=== PATIENT | female | born 1995 | race Caucasian/White ===

== ENCOUNTER → 2016-08-03 | Outpatient (CLI) | payer MEDICAID | END | disposition home or self-care (01) | LOC: LABWHC1 15:00 | DX: L65.9 Nonscarring hair loss, unspecified (principal) | CPT/HCPCS: 36415; 84132 ==

== ENCOUNTER 2020-02-15 10:54 | Inpatient (IN) | payer MEDICAID ==
[2020-02-15 11:25] LABS: Appearance,Urine Cloudy (Clear); Bacteria,Urine Few /hpf; Bilirubin,Urine Negative (Negative); Blood,Urine Negative (Negative); Color,Urine Yellow; Glucose,Urine (UA) Negative (Negative); Ketones,Urine Negative (Negative); Leukocyte Esterase,Urine Large (Negative); Mucus,Urine Rare /hpf; Nitrite,Urine Negative (Negative); PH, Urine 6.5 (5.0-8.0); Protein,Urine Negative (Negative); RBC,Urine 2 /hpf (0-5); Squamous Epithelial Cell,Urine 2 /hpf (0-4); Urobilinogen,Urine <2.0 mg/dL (<2.0); WBC,Urine 10 /hpf (0-5)
--- NOTE | 2020-02-15 12:34 | US ---
EXAMINATION TYPE: US kidneys/renal and bladder DATE OF EXAM: 02/15/2020 COMPARISON: CT, X ray CLINICAL HISTORY: left back pain. Left flank pain in third trimester ; prior renal stones; h ematuria per patient EXAM MEASUREMENTS: Right Kidney: 9.0 x 4.6 x 4.1 cm Left Kidney: 9.1 x 5.2 x 5.6 cm Post Void Residual Volume: not assessed on inpatient Right Kidney: multiple hyperechoic small calcifications with largest noted mid lower pole = 0.5 x 0.5 x 0.5cm; moderate hydronephrosis Left Kidney: multiple hyperechoic calcifications with largest noted mid pole cluster = 0.7 x 0.3 x 0. 3cm; mild hydronephrosis Bladder: wnl Bilateral Jets seen: only left ureter jet see IMPRESSION: 1. Moderate right hydronephrosis. Mild left hydronephrosis. 2. Multiple right renal stones.
[2020-02-15] MEDS: LACTATED RINGERS 1,000 ML IV SCH ×3 (12:45→19:54)
[2020-02-15] MEDS ORDERED: ACETAMINOPHEN IV (For NPO) 1,000 MG in EMPTY BAG 1 BAG IVPB ONE (12:59)
[2020-02-15] MEDS ORDERED: HYDROcodone/APAP 5-325MG 1 EACH TAB PO STA (14:23)
[2020-02-15] MEDS ORDERED: LACTATED RINGERS 1,000 ML IV SCH (14:30)
[2020-02-15] MEDS: ONDANSETRON 4 MG/2 ML VIAL IVP PRN ×2 (15:32→23:49)
[2020-02-15] MEDS ORDERED: NALOXONE 0.4 MG/ML 1 ML VIAL IV PRN (16:56)
[2020-02-15] MEDS: HYDROmorphone PCA 10 MG/50 ML BAG IV PRN (18:06)
--- NOTE | 2020-02-15 19:34 | P.GSCN ---
History of Present Illness Consult date: 02/15/20 Reason for Consult: Bilateral hydronephrosis History of present illness: .The patient is a 24-year-old, 35 week female admitted for evaluation left flank pain. The patient says that she noted some blood in her urine on 02/11 and was started on Macrobid due to a possible urinary tract infection. She denied any dysuria or change in her urinary pattern at that time. She has had no fever or chills. Two days ago she began experiencing increasing pain in the left flank and left upper abdomen. This has been associated with nausea but no vomiting. The patient came to the OB triage area for evaluation and control of her pain. Ultrasound of the kidneys and bladder performed earlier today showed what appeared to be multiple renal calculi bilaterally. Moderate right hydronephrosis and mild left hydronephrosis was seen. A left ureteral jet was demonstrated. The patient has a history of urolithiasis which required treatment in 2013. She does not have a history of recurrent urinary tract infections. She denies any dysuria or urgency at this time. Review of Systems - Constitutional Denies chills, Denies fever - Cardiovascular Denies shortness of breath - Gastrointestinal Reports as per HPI, Denies change in bowel habits - Genitourinary Genitourinary: Reports as per HPI Past Medical History Additional Past Medical History / Comment(s): RENAL CALCULUS, mononucleosis 2011 History of Any Multi-Drug Resistant Organisms: None Reported Past Surgical History: No Surgical Hx Reported Past Anesthesia/Blood Transfusion Reactions: No Reported Reaction Smoking Status: Never smoker Medications and Allergies Home Medications Medication Instructions Recorded Confirmed Type Acetaminophen-Codeine 300-30mg 1 each PO Q4H PRN #12 tablet 02/10/14 02/18/14 Rx [Tylenol #3] Ketorolac [Toradol] 10 mg PO Q6HR PRN #15 tab 02/10/14 02/14/14 Rx Metoclopramide HCl [Reglan] 10 mg PO Q6HR PRN #15 tablet 02/10/14 02/14/14 Rx Tamsulosin HCl [Flomax] 0.4 mg PO DAILY 02/18/14 02/18/14 History Allergies Allergy/AdvReac Type Severity Reaction Status Date / Time No Known Allergies Allergy Verified 02/15/20 11:09 Surgical - Exam Vital Signs Temp Pulse Resp BP 96.7 F L 115 H 16 134/86 02/15/20 11:20 02/15/20 11:20 02/15/20 11:20 02/15/20 11:20 - General well developed, well nourished, moderate pain - Respiratory normal respiratory effort - Abdomen Abdomen: soft, masses (Consistent with a gravid uterus) Results - Labs Abnormal Lab Results - Last 24 Hours (Table) 02/15/20 Range/Units 11:10 Urine Appearance Cloudy H (Clear) Ur Leukocyte Esterase Large H (Negative) Urine WBC 10 H (0-5) /hpf Urine Bacteria Few H (None) /hpf Urine Mucus Rare H (None) /hpf Assessment and Plan (1) Bilateral hydronephrosis Narrative/Plan: I told the patient that it is unclear whether her left-sided abdominal pain and hydronephrosis are related to passage of a ureteral calculus or whether the hydronephrosis is related to her late stage of . She actually had more hydronephrosis on the right side than on the left side and a left ureteral jet was present. The patient does not have a urinary tract infection or other signs of sepsis. In view of this further observation with analgesics and antinausea medications would be the best first step. I will reevaluate the patient tomorrow. Current Visit: Yes Status: Acute Code(s): N13.30 - UNSPECIFIED HYDRONEPHROSIS SNOMED Code(s): 49653272
[2020-02-16] MEDS ORDERED: ACETAMINOPHEN IV (For NPO) 1,000 MG in EMPTY BAG 1 BAG IVPB ONE (00:33)
[2020-02-16] MEDS: LACTATED RINGERS 1,000 ML IV SCH ×5 (00:53→20:29)
[2020-02-16] MEDS: ONDANSETRON 4 MG/2 ML VIAL IVP PRN ×2 (09:16→14:43)
--- NOTE | 2020-02-16 11:14 | P.PN ---
Progress Note - Text Progress Note Date: 02/16/20 The patient is afebrile. She says that she feels somewhat better than yesterday. She is tolerating a diet. She continues to have left-sided abdominal and flank pain. Her pain seems worse with moving and ambulation which is not typical for renal colic. The patient can be discharged from [facility] once her pain is controllable with oral analgesics.
--- NOTE | 2020-02-16 12:37 | P.HPOB ---
History of Present Illness H&P Date: 02/16/20 Chief Complaint: 34-6/7 weeks, nephrolithiasis, acute pain The patient is a 24-year-old 1 para 0 admitted at 34-6/7 weeks as established by last menstrual period and confirmed by second trimester ultrasound. She is admitted with a known history of nephrolithiasis for which urology has seen her on several occasions. She presents to triage with acute onset of pain, primarily in the left flank. Ultrasound demonstrates bilateral stones in the hilus of each kidney. There is moderate right hydronephrosis with mild left hydronephrosis. The patient reports her pain is primarily on the left side. She was aggressively hydrated in triage and treated with oral pain medications but failed to have adequate relief of her pain. As result, she was admitted for IV pain control. All signs are reassuring at this time. She also has reported some irregular nausea though she is currently tolerating liquids and a regular diet. Thus far, her pain has not been adequately controlled with only oral pain medications. As a result, she has been admitted and given a CHIP MIXER for analgesia as well as aggressive IV and oral hydration. Obstetrical history: 1 para 0 with current statistics listed in history present illness. EDC of 03/22/2020 was established by last menstrual period and confirmed by second trimester ultrasound. Laboratory workup demonstrates a blood type of O+ with a negative antibody screen. Rubella status is immune. The remainder of the laboratory workup was within normal limits. One hour Glucola is normal and group B strep status is not yet been determined. Gynecologic history: Unremarkable with no history of any infections to include STDs. Review of Systems Review of systems is confined to history of present illness. Past Medical History Additional Past Medical History / Comment(s): RENAL CALCULUS, mononucleosis 2011 History of Any Multi-Drug Resistant Organisms: None Reported Past Surgical History: No Surgical Hx Reported Past Anesthesia/Blood Transfusion Reactions: No Reported Reaction Past Psychological History: No Psychological Hx Reported Smoking Status: Never smoker Past Alcohol Use History: None Reported Past Drug Use History: None Reported - Past Family History Mother Family Medical History: No Reported History Medications and Allergies Home Medications Medication Instructions Recorded Confirmed Type Acetaminophen-Codeine 300-30mg 1 each PO Q4H PRN #12 tablet 02/10/14 02/18/14 Rx [Tylenol #3] Ketorolac [Toradol] 10 mg PO Q6HR PRN #15 tab 02/10/14 02/14/14 Rx Metoclopramide HCl [Reglan] 10 mg PO Q6HR PRN #15 tablet 02/10/14 02/14/14 Rx Tamsulosin HCl [Flomax] 0.4 mg PO DAILY 02/18/14 02/18/14 History Allergies Allergy/AdvReac Type Severity Reaction Status Date / Time No Known Allergies Allergy Verified 02/15/20 11:09 Exam Vital Signs Temp Pulse Resp BP Pulse Ox 02/16/20 08:00 98.2 F 76 18 124/76 96 Intake and Output 02/15/20 02/16/20 02/16/20 22:59 06:59 14:59 Intake Total 1000 Balance 1000 Intake: IV 1000 Other: # Voids 1 1 Weight 78.925 kg In general, this is a well-developed, well-nourished white female in no acute distress though she does have some moderate flank pain. Her heart has a regular rhythm and rate without murmur. Her lungs are clear to auscultation bilaterally in all sterling. Her abdomen is gravid, nondistended, has normal active bowel sounds, soft, nontender, and without any palpable masses aside from uterine fundus. Her extremities are without any cyanosis, clubbing, or edema and are nontender to palpation bilaterally. She does have mild to moderate left flank pain with minimal to mild right flank pain. Results Microbiology - Last 24 Hours (Table) 02/15/20 11:00 Urine Culture - Preliminary Urine,Clean Catch Assessment and Plan (1) Nephrolithiasis Current Visit: Yes Status: Acute Code(s): N20.0 - CALCULUS OF KIDNEY SNOMED Code(s): 00352591 (2) 35 weeks gestation of Current Visit: Yes Status: Acute Code(s): Z3A.35 - 35 WEEKS GESTATION OF SNOMED Code(s): 43278040 (3) Acute left flank pain Current Visit: Yes Status: Acute Code(s): R10.9 - UNSPECIFIED ABDOMINAL PAIN SNOMED Code(s): 932537716 Plan: The patient has been admitted for IV management of pain given her diagnosis of nephrolithiasis and inability to control it with oral pain medications. She continues to have relatively aggressive IV hydration and is tolerating oral fluids as well. Her urine will be strained. There is no evidence of any superimposed infection at this time. Urology has been consulted and the notes from urology service are appreciated. We will continue to make attempts to transition from IV pain controlled oral pain control in order to attempt to dis charge the patient as soon as possible. This may become more difficult as she continues to have significant nausea.
[2020-02-16] MEDS ORDERED: ACETAMINOPHEN IV (For NPO) 1,000 MG in EMPTY BAG 1 BAG IVPB STA (16:03)
[2020-02-16] MEDS: SENNOSIDES-DOCUSATE SODIUM 1 EACH TAB PO SCH (20:37)
[2020-02-17] MEDS: HYDROmorphone PCA 10 MG/50 ML BAG IV PRN (00:41)
[2020-02-17] MEDS: LACTATED RINGERS 1,000 ML IV SCH ×3 (04:30→20:34)
[2020-02-17] MEDS: ONDANSETRON 4 MG/2 ML VIAL IVP PRN ×2 (08:03→17:52)
[2020-02-17] MEDS: SENNOSIDES-DOCUSATE SODIUM 1 EACH TAB PO SCH (08:03)
--- NOTE | 2020-02-17 10:48 | P.PN ---
Subjective Progress Note Date: 02/17/20 Principal diagnosis: Left nephrolithiasis, 35+ weeks gestation The patient continues to complain of relatively constant pain in the left flank which has not decreased to this point. She does continue to require IV narcotics with a TRAPPER ANIMAL. She has occasional nausea but is otherwise tolerating oral liquids and solids. Objective - Vital Signs Vital signs: Vital Signs Temp 97.0 F L 02/17/20 08:04 Pulse 110 H 02/17/20 08:04 Resp 16 02/17/20 08:04 BP 122/76 02/17/20 08:04 Pulse Ox 95 02/17/20 08:04 Intake & Output 02/16/20 02/17/20 02/17/20 18:59 06:59 18:59 Intake Total 1000 1000 Balance 1000 1000 Intake: IV 1000 1000 Other: # Voids 2 - Exam In general, this is a well-developed, well-nourished white female in no obvious distress. Her heart has a regular rhythm and rate without murmur. Her lungs are clear to auscultation bilaterally in all sterling. Her abdomen is gravid, nondistended, has normal active bowel sounds, soft, nontender, and without masses aside from uterine fundus. Her left flank is still moderately tender to palpation. Her extremities are without any cyanosis, clubbing, or significant edema and are nontender to palpation bilaterally. Digital cervical examination is deferred. - Labs Labs: Microbiology - Last 24 Hours (Table) 02/15/20 11:00 Urine Culture - Final Urine,Clean Catch Assessment and Plan (1) Nephrolithiasis Current Visit: Yes Status: Acute Code(s): N20.0 - CALCULUS OF KIDNEY SNOMED Code(s): 38086701 (2) 35 weeks gestation of Current Visit: Yes Status: Acute Code(s): Z3A.35 - 35 WEEKS GESTATION OF SNOMED Code(s): 73579473 (3) Acute left flank pain Current Visit: Yes Status: Acute Code(s): R10.9 - UNSPECIFIED ABDOMINAL PAIN SNOMED Code(s): 009768459 Plan: The case was discussed with Dr. Jackson from urology. We will continue aggressive IV hydration and IV pain control. He has opted to order a single shot KUB to attempt to locate the site of the stone to make further recommendations. Further disposition will the 10 upon the findings of the x-ray.
--- NOTE | 2020-02-17 12:12 | XR ---
EXAMINATION TYPE: XR KUB , ONE VIEW DATE OF EXAM ORDERED: 02/17/2020 HISTORY: left ureteral calculi. COMPARISON: Previous study dated 02/22/2014.. FINDINGS: There is a fully developed fetus within the abdomen. There are multiple phleboliths within the pelvis. There is a calculus projecting just below the pedicle of L5 measuring 3.9 mm. This may r epresent a ureteric calculus. IMPRESSION: 1. . 2. I CANNOT EXCLUDE A RENAL CALCULUS.
--- NOTE | 2020-02-17 13:14 | P.PN ---
Progress Note - Text Progress Note Date: 02/17/20 The patient is afebrile. She continues to have intermittent left flank pain which so far has been tolerable only with IV narcotics. She no longer has vomiting and is tolerating liquids but is not very hungry. I discussed the patient with Dr. Espinosa and it was elected to obtain a single view KUB. This appears to show a <4 mm calculus in the region of the left ureter at approximately the L5-S1 level. I discussed the pros and cons of further observation versus placement of a double-J catheter versus ureteroscopy with lithotripsy with the patient. The patient is interested in further conservative treatment and I encouraged her to try staying in the knee-chest position as much as possible as this may allow easier migration of the calculus. If the patient's pain persists then either placement of a double-J catheter or ureteroscopy with lithotripsy could be performed later in the week.
[2020-02-18] MEDS: SENNOSIDES-DOCUSATE SODIUM 1 EACH TAB PO SCH (00:10)
[2020-02-18 03:09] VITALS: RESP 16
[2020-02-18] MEDS: LACTATED RINGERS 1,000 ML IV SCH (07:24)
--- NOTE | 2020-02-18 08:10 | P.PN ---
Subjective Progress Note Date: 02/18/20 The patient is 35 weeks . She is in the hospital with left ureteral colic. Based on history ultrasound and a KUB done over the weekend she has a small mid ureteral stone on the left side at L5-S1. She is feeling much better. She would prefer to pass this spontaneously if possible. Dr. Oliveira I discussed the situation and she'll be discharged home on some mild oral pain medication. Hopefully she can pass this spontaneously but if problems arise with including recurrent pain will be glad to reassess with either stent or stone manipulation. She's been instructed to contact our office post delivery to further assess the stone situation. Objective - Vital Signs Vital signs: Vital Signs Temp 97.3 F L 02/18/20 01:00 Pulse 106 H 02/18/20 01:00 Resp 16 02/18/20 01:00 BP 113/62 02/18/20 01:00 Pulse Ox 97 02/17/20 16:40 Intake & Output 02/17/20 02/18/20 02/18/20 18:59 06:59 18:59 Other: # Voids 2 2 - Labs Labs: Microbiology - Last 24 Hours (Table) 02/15/20 11:00 Urine Culture - Final Urine,Clean Catch
--- NOTE | 2020-02-18 08:15 | P.DS ---
Providers Date of admission: 02/16/20 09:51 Expected date of discharge: 02/18/20 Attending physician: Nidia Oliveira Consults: 02/15/20 14:35 Consult Physician Routine Consulting Provider: Juan Jackson Consult Reason/Comments: renal lithiasis Do you want consulting provider notified?: Already Contacted Primary care physician: Stated None Hospital Course: This is a 24-year-old white female 1 para 0 EDC 03/22/2020 at 35-2/7 weeks' gestation. Patient presented 3 days ago with severe left flank pain. Ultrasound revealed renal stones bilaterally, left hydroureter and hydronephrosis. Patient was admitted for pain management and urology consultation. Please see admitting history and physical for details. Patient was seen over the weekend and the MATERIALS AND PROCESSES MANAGER was started. This morning she feels her pain is improved. She is rating it a 4-5 out of 10 in the left flank. She has been seen by urology, and Dr. Mina is here with us this morning as well. Patient feels improved and off for discharge home. We will D/ C the MATERIALS AND PROCESSES MANAGER, allow the patient to shower. I have given her prescription for Zofran 4 mg to take every 12 hours as needed for nausea, as well as Tylenol No. 3 to be taken one every 4 hours along with an extra strength Tylenol for moderately severe pain. Patient is reminded to increase oral fluids. She will continue the Macrobid prescription given in the office. She will follow-up with me in the office in 1 week. She will call if pain becomes unmanageable at home. She has been, alt regarding the use of a stent which at this time she declines. Patient Condition at Discharge: Good Plan - Discharge Summary Discharge Rx Participant: No New Discharge Prescriptions: No Action Acetaminophen-Codeine 300-30mg [Tylenol #3] 1 each PO Q4H PRN #12 tablet PRN Reason: Pain Ketorolac [Toradol] 10 mg PO Q6HR PRN #15 tab PRN Reason: Pain Metoclopramide HCl [Reglan] 10 mg PO Q6HR PRN #15 tablet PRN Reason: Nausea Tamsulosin HCl [Flomax] 0.4 mg PO DAILY Discharge Medication List Acetaminophen-Codeine 300-30mg [Tylenol #3] 1 each PO Q4H PRN #12 tablet 02/10/14 [Rx] Ketorolac [Toradol] 10 mg PO Q6HR PRN #15 tab 02/10/14 [Rx] Metoclopramide HCl [Reglan] 10 mg PO Q6HR PRN #15 tablet 02/10/14 [Rx] Tamsulosin HCl [Flomax] 0.4 mg PO DAILY 02/18/14 [History] Follow up Appointment(s)/Referral(s): Nidia Oliveira MD [STAFF PHYSICIAN] - 1 Week Discharge Disposition: HOME SELF-CARE
[2020-02-18] MEDS ORDERED: Acetaminophen-Codeine 300-30mg TAB PO STA (08:45)
[2020-02-18 08:54] VITALS: BP 118/78; PULSE 94; TEMP 96.4
== END 2020-02-18 10:06 | disposition home or self-care (01) | DRG 832 ==
LOC: FBPOP 10:54 → 4FBP 16:56 → OBSVTOIN 02-16 09:51
PROVIDERS: ADMIT Obstetrics & Gynecology; ATTEND Obstetrics & Gynecology
DX: O26.833 Pregnancy related renal disease, third trimester (principal); N13.2 Hydronephrosis with renal and ureteral calculous obstruction; Z3A.35 35 weeks gestation of pregnancy; Z79.899 Other long term (current) drug therapy; Z87.442 Personal history of urinary calculi
CPT/HCPCS: 74018; 76770; 81001; 87086

== ENCOUNTER 2020-02-20 02:43 | Observation (INO) | payer MEDICAID ==
[2020-02-20] MEDS: HYDROmorphone 1 MG/ML 1 ML SYRINGE IVP PRN ×3 (03:08→11:14)
[2020-02-20] MEDS: LACTATED RINGERS 1,000 ML IV SCH ×4 (03:13→15:59)
[2020-02-20 03:31] LABS: Basophils % (A) 0 %; Eosinophils # (A) 0.1 k/uL (0-0.7); Eosinophils % (A) 1 %; HCT 31.5 % (34.0-46.0); HGB 10.1 gm/dL (11.4-16.0); Hypochromasia Slight; Lymphocytes # (A) 1.7 k/uL (1.0-4.8); Lymphocytes % (A) 12 %; MCH 28.9 pg (25.0-35.0); MCHC 32.2 g/dL (31.0-37.0); Mean Platelet Volume 7.2; Monocytes # (A) 0.7 k/uL (0-1.0); Monocytes % (A) 5 %; Neutrophils # (A) 11.3 k/uL (1.3-7.7); Neutrophils % (A) 81 %; Platelet Count 284 k/uL (150-450); RBC 3.51 m/uL (3.80-5.40); RDW 14.3 % (11.5-15.5); WBC 13.9 k/uL (3.8-10.6)
--- NOTE | 2020-02-20 09:00 | P.HPOB ---
History of Present Illness H&P Date: 02/20/20 Chief Complaint: pain 24 Year old female 35 4/7 weeks with history of kidney stones. She is scheduled for stent placement on 02/20/2020 however presented in the night with worsening pain. SHe is admitted for pain control and rule out labor prior to her procedure. Review of Systems Constitutional: Denies chills, Denies fever Cardiovascular: Denies chest pain, Denies shortness of breath Gastrointestinal: Reports abdominal pain, Reports nausea, Denies vomiting Genitourinary: Reports hematuria, Reports kidney stones, Denies abnormal vaginal bleeding Musculoskeletal: Reports low back pain Integumentary: Denies rash Neurological: Denies headaches Past Medical History Additional Past Medical History / Comment(s): RENAL CALCULUS, mononucleosis 2011, 35 weeks , recent admission for bilateral kidney stones History of Any Multi-Drug Resistant Organisms: None Reported Past Surgical History: No Surgical Hx Reported Additional Past Surgical History / Comment(s): lithotripsy Past Anesthesia/Blood Transfusion Reactions: No Reported Reaction Past Psychological History: No Psychological Hx Reported Smoking Status: Never smoker Past Alcohol Use History: None Reported Past Drug Use History: None Reported - Past Family History Mother Family Medical History: No Reported History Medications and Allergies Home Medications Medication Instructions Recorded Confirmed Type Acetaminophen-Codeine 300-30mg 1 each PO Q4H PRN #12 tablet 02/10/14 02/20/20 Rx [Tylenol #3] Ondansetron HCl [Zofran] 4 mg PO Q8H PRN 02/19/20 02/20/20 History Allergies Allergy/AdvReac Type Severity Reaction Status Date / Time No Known Allergies Allergy Verified 02/20/20 02:54 Exam Vital Signs Temp Pulse Resp BP Pulse Ox 02/20/20 02:59 97.4 F L 73 16 127/83 98 Intake and Output 02/19/20 02/20/20 02/20/20 22:59 06:59 14:59 Other: # Voids 1 Weight 78.925 kg This is a visibly gravid, female who appears uncomfortable. Uterus is gravid apprpriate to gestational age. Soft, nontender. POsitive flank pain. No vaginal bleeding. No ctx on tocometer, FHTs cat 1. Results Result Diagrams: 02/20/20 02:55 Abnormal Lab Results - Last 24 Hours (Table) 02/20/20 Range/Units 02:55 WBC 13.9 H (3.8-10.6) k/uL RBC 3.51 L (3.80-5.40) m/uL Hgb 10.1 L (11.4-16.0) gm/dL Hct 31.5 L (34.0-46.0) % Neutrophils # 11.3 H (1.3-7.7) k/uL Assessment and Plan (1) 35 weeks gestation of Current Visit: No Status: Acute Code(s): Z3A.35 - 35 WEEKS GESTATION OF SNOMED Code(s): 58567952 (2) Acute left flank pain Current Visit: No Status: Acute Code(s): R10.9 - UNSPECIFIED ABDOMINAL PAIN SNOMED Code(s): 932231412 (3) Bilateral hydronephrosis Current Visit: No Status: Acute Code(s): N13.30 - UNSPECIFIED HYDRONEPHROSIS SNOMED Code(s): 96011718 (4) Nephrolithiasis Current Visit: No Status: Acute Code(s): N20.0 - CALCULUS OF KIDNEY SNOMED Code(s): 75997170 Plan: Admitted for pain control secondary to renal calculus. Has planned stent procedure later today with Dr. Mireles. Her pain is currently tolerable with IV dilaudid. Maintain NPO for procedure. NO sign active labor. Can be discharged home post procedure this afternoon with follow up with Dr Oliveira.
--- NOTE | 2020-02-20 09:58 | P.GSCN ---
History of Present Illness Consult date: 02/20/20 History of present illness: This is a 24-year-old female 1 para 0, 35 weeks who is in the hospital recently with a left midureteral stone approximate 4 mm in diameter. The patient has a history of stones and had one removed back in 2013 by . She was given the option of spontaneous passage but called me in the office yesterday and stated that her pain was too severe. She is to be set up for a stent today but ended up in the hospital last night. She still rates her pain at a 9 out of 10. She had a KUB the day that showed the stone in the left mid ureter. His no fever or chills or nausea vomiting. She had a left stent placement later today. Review of Systems All systems: negative - Constitutional Denies fever, Denies weight loss - EENT Eyes: denies blurred vision Ears, nose, mouth and throat: Denies dysphagia - Cardiovascular Denies chest pain, Denies shortness of breath - Respiratory Denies cough, Denies 7 - Gastrointestinal Reports as per HPI - Genitourinary Genitourinary: Denies dysuria, Denies hematuria - Integumentary Denies rash, Denies unusual bruising - Neurological Denies headaches, Denies syncope - Hematologic/Lymphatic Denies easy bleeding, Denies easy bruising Past Medical History Additional Past Medical History / Comment(s): RENAL CALCULUS, mononucleosis 2011, 35 weeks , recent admission for bilateral kidney stones History of Any Multi-Drug Resistant Organisms: None Reported Past Surgical History: No Surgical Hx Reported Additional Past Surgical History / Comment(s): lithotripsy Past Anesthesia/Blood Transfusion Reactions: No Reported Reaction Past Psychological History: No Psychological Hx Reported Smoking Status: Never smoker Past Alcohol Use History: None Reported Past Drug Use History: None Reported - Past Family History Mother Family Medical History: No Reported History Medications and Allergies Home Medications Medication Instructions Recorded Confirmed Type Acetaminophen-Codeine 300-30mg 1 each PO Q4H PRN #12 tablet 02/10/14 02/20/20 Rx [Tylenol #3] Ondansetron HCl [Zofran] 4 mg PO Q8H PRN 02/19/20 02/20/20 History Allergies Allergy/AdvReac Type Severity Reaction Status Date / Time No Known Allergies Allergy Verified 02/20/20 02:54 Surgical - Exam Vital Signs Temp Pulse Resp BP Pulse Ox 97.4 F L 73 16 127/83 98 02/20/20 02:59 02/20/20 02:59 02/20/20 02:59 02/20/20 02:59 02/20/20 02:59 - General Mild distress well developed, well nourished - Eyes PERRL - ENT no hearing loss - Neck trachea midline - Respiratory normal expansion, normal respiratory effort - Cardiovascular Rhythm: regular - Abdomen Abdomen: soft, non tender - Neurologic normal sensation - Musculoskeletal normal posture - Psychiatric oriented to time, oriented to person, oriented to place, speech is normal, mem ory intact Results - Labs 02/20/20 02:55 Abnormal Lab Results - Last 24 Hours (Table) 02/20/20 Range/Units 02:55 WBC 13.9 H (3.8-10.6) k/uL RBC 3.51 L (3.80-5.40) m/uL Hgb 10.1 L (11.4-16.0) gm/dL Hct 31.5 L (34.0-46.0) % Neutrophils # 11.3 H (1.3-7.7) k/uL - Imaging Abdominal x-ray: report reviewed, image reviewed Assessment and Plan Assessment: Impression: Left ureteral calculus with colic, 35 week 1 para 0 Recommendations: Due to the colic a stent will be placed. Relieve her of the colic and then will deal with her ureteral calculus post delivery.
[2020-02-20] MEDS ORDERED: ONDANSETRON 4 MG/2 ML VIAL IVP ONE (14:20)
[2020-02-20] MEDS ORDERED: fentaNYL (PF) 50 MCG/ML 2 ML AMP IV ONE ×2 (14:22→15:16)
[2020-02-20] MEDS ORDERED: PROPOFOL 10 MG/ML 20 ML VIAL IV ONE (15:54)
[2020-02-20] MEDS ORDERED: LIDOCAINE 1% INJ 10MG/ML (20 ML MDV) ONE (15:54)
[2020-02-20] MEDS ORDERED: SODIUM CHLORIDE 0.9% 50 ML with ceFAZolin 1,000 MG IV ONE ×2 (16:07)
[2020-02-20] MEDS ORDERED: LIDOCAINE 2% GEL 30 ML TUBE TOPICAL ONE (16:13)
--- NOTE | 2020-02-20 16:36 | P.OP ---
Date of Procedure: 02/20/20 Preoperative Diagnosis: Left hydronephrosis Postoperative Diagnosis: Left hydronephrosis Procedure(s) Performed: Cystoscopy and placement of left double-J catheter Anesthesia: MAC Surgeon: Juan Jackson Pathology: none sent Condition: stable Disposition: PACU Indications for Procedure: The patient is a 24-year-old female who is 36 weeks . She developed left flank pain last week and was discovered to have left hydronephrosis. KUB appears to show a 5 mm calculus at the L4-L5 level. He has been unable to tolerate her pain with oral analgesics and after reviewing treatment options with the patient and Dr. Oliveira it has been elected to place a double-J catheter for decompression of the left kidney. Description of Procedure: The patient was taken to the operating suite where intravenous sedation was given. The patient was placed in the dorsal lithotomy position with her legs suspended from padded Mao stirrups. Sequential pneumatic compression stockings were applied to the lower legs. The genitalia was prepped with Betadine solution and draped in sterile fashion. 2% lidocaine jelly was instilled into the urethra. The 19-Armenian cystoscope sheath with 30 lens was passed through the urethra and into the bladder. Both ureteral orifices were of normal location and configuration. The bladder appeared to be extrinsically compressed due to her state. The left ureteral orifice was identified and a 0.035 Glidewire was advanced into the left ureteral orifice. The Glidewire was advanced without difficulty up into the proximal ureter and renal pelvis. A 6-Armenian x 22 cm double-J catheter was then advanced over the Glidewire and positioned using the cystoscope so that the distal and coiled in the bladder. The cystoscope was withdrawn and the procedure was terminated. The patient tolerated procedure well and left the operating room awake and in satisfactory condition. There is no blood loss. The patient will be discharged later today if she is comfortable. Elective left ureteroscopy with lithotripsy will be set up sometime in March after the patient has delivered her baby.
[2020-02-20] MEDS ORDERED: HYDROmorphone 0.5 MG/0.5 ML SYRINGE IVP ONE (17:00)
[2020-02-20 17:08] VITALS: RESP 16
[2020-02-20 20:12] VITALS: BP 130/85; PULSE 100; TEMP 98.5
== END 2020-02-20 20:40 | disposition home or self-care (01) ==
LOC: 4FBP 02:43
PROVIDERS: ADMIT Obstetrics & Gynecology; ATTEND Obstetrics & Gynecology
DX: O26.833 Pregnancy related renal disease, third trimester (principal); N13.2 Hydronephrosis with renal and ureteral calculous obstruction; Z3A.35 35 weeks gestation of pregnancy; Z87.442 Personal history of urinary calculi; Z86.19 Personal history of other infectious and parasitic diseases; Z98.890 Other specified postprocedural states
CPT/HCPCS: 52332; 96376; 96374; 86900; 86901; 85025; 86850; G0378; G0379; C1769; C2625; J2405; J0690; J2001; J3010; J1170 ×2; J2704

== ENCOUNTER 2020-03-18 14:32 | Inpatient (IN) | payer MEDICAID, OTHER ==
[2020-03-18] MEDS: LACTATED RINGERS 1,000 ML IV SCH ×3 (15:40→22:30)
[2020-03-18] MEDS ORDERED: METHYLERGONOVINE 0.2 MG/ML 1 ML AMP IM PRN (16:00)
[2020-03-18] MEDS ORDERED: CARBOPROST TROMETHAMINE 250 MCG/ML 1 ML AMP IM PRN (16:00)
[2020-03-18] MEDS ORDERED: OXYTOCIN 10 UNIT/ML 1 ML VIAL IM PRN (16:00)
[2020-03-18] MEDS ORDERED: OXYTOCIN 30 UNITS/500 ML NS 30 UNIT in SALINE 1 500ML.BAG IV SCH (16:00)
[2020-03-18] MEDS ORDERED: TERBUTALINE 1 MG/ML VIAL SQ PRN (16:00)
[2020-03-18] MEDS ORDERED: LIDOCAINE 0.5% (PF) 5 MG/ML (50 ML SDV) SQ PRN (16:00)
[2020-03-18 17:50] LABS: Basophils % (A) 0 %; Eosinophils # (A) 0.2 k/uL (0-0.7); Eosinophils % (A) 2 %; HCT 34.2 % (34.0-46.0); HGB 10.6 gm/dL (11.4-16.0); Hypochromasia Slight; Lymphocytes # (A) 2.2 k/uL (1.0-4.8); Lymphocytes % (A) 18 %; MCH 27.3 pg (25.0-35.0); MCHC 31.2 g/dL (31.0-37.0); MCV 87.6 fL (80.0-100.0); Mean Platelet Volume 8.4; Monocytes # (A) 0.7 k/uL (0-1.0); Monocytes % (A) 6 %; Neutrophils # (A) 9.3 k/uL (1.3-7.7); Neutrophils % (A) 73 %; Platelet Count 314 k/uL (150-450); RDW 15.8 % (11.5-15.5); WBC 12.7 k/uL (3.8-10.6)
[2020-03-18] MEDS ORDERED: BUTORPHANOL 1 MG/ML 1 ML VIAL IV PRN (18:17)
[2020-03-18] MEDS ORDERED: fentaNYL (PF) 50 MCG/ML 5 ML AMP ONE (21:07)
[2020-03-18] MEDS ORDERED: ROPIVACAINE 5MG/ML 20ML VIAL ONE (21:07)
[2020-03-18] MEDS ORDERED: SODIUM CHLORIDE 0.9% 100 ML BAG ONE (21:07)
[2020-03-19] MEDS ORDERED: PENICILLIN G POTASSIUM 5,000,000 UNIT in DEXTROSE 5% IN WATER 100 ML IVPB ONE ×2 (01:30)
--- NOTE | 2020-03-19 03:17 | P.HPOB ---
History of Present Illness H&P Date: 03/19/20 Chief Complaint: My water broke at 1:30 This is a 24-year-old white female 1 para 0 EDC 03/22/2020 at 39-3/7 weeks' gestation. Patient presented with her water breaking at home, thin meconium-stained fluid. She denies uterine contractions. Fetus is been active throughout the . Past medical history is significant for kidney stones, ureteral stent placed at 35 weeks gestation per came her. Past surgical history lithotripsy 2013. Current medications vitamins. ALLERGIES none known. Family history significant for thyroid disease and hypertension. Social history patient works at [employer], she is single, father of the baby is involved. She denies tobacco alcohol or drug use. history significant for blood type O+, rubella status immune. Urine culture, hepatitis B surface antigen, HIV testing, gonorrhea and chlamydia cultures, group B strep cultures all negative. One-hour Glucola 108. Thyroid function studies within normal limits. On exam patient is 5 foot 1 inch, 173 pounds, blood pressure 130/79. Vital signs are stable and she is afebrile. General physical exam is within normal limits. Pelvic exam reveals positive amnio sure, cervix 2-3 cm dilated, 60-70% effaced. heart rate consistent with reactive NST. No uterine contractions noted. Impression: 39-3/7 weeks intrauterine , spontaneous amniorrhexis. Plan: Oxytocin augmentation per hospital protocol. Analgesic options have been reviewed with the patient. Close maternal and surveillance. Anticipate normal spontaneous vaginal delivery. Review of Systems Constitutional: Reports as per HPI Past Medical History Additional Past Medical History / Comment(s): RENAL CALCULUS, mononucleosis 2011, 35 weeks , recent admission for bilateral kidney stones History of Any Multi-Drug Resistant Organisms: None Reported Past Surgical History: No Surgical Hx Reported Additional Past Surgical History / Comment(s): lithotripsy Past Anesthesia/Blood Transfusion Reactions: No Reported Reaction Past Psychological History: No Psychological Hx Reported Smoking Status: Never smoker Past Alcohol Use History: None Reported Past Drug Use History: None Reported - Past Family History Mother Family Medical History: No Reported History Father Family Medical History: Hypertension, Thyroid Disorder Medications and Allergies Home Medications Medication Instructions Recorded Confirmed Type Pnv,Calcium 72/Iron/Folic Acid 1 tab PO DAILY MDD 1 03/18/20 03/18/20 History [ Plus Tablet] Allergies Allergy/AdvReac Type Severity Reaction Status Date / Time No Known Allergies Allergy Verified 02/20/20 02:54 Exam Vital Signs Temp Pulse Resp BP 03/18/20 16:00 97.9 F 97 18 130/79 Intake and Output 03/18/20 03/18/20 03/19/20 14:59 22:59 06:59 Other: # Voids 2 Weight 78.471 kg See dictation under HPI please Results Result Diagrams: 03/18/20 16:00 Abnormal Lab Results - Last 24 Hours (Table) 03/18/20 Range/Units 16:00 WBC 12.7 H (3.8-10.6) k/uL Hgb 10.6 L (11.4-16.0) gm/dL RDW 15.8 H (11.5-15.5) % Neutrophils # 9.3 H (1.3-7.7) k/uL Assessment and Plan Assessment: 39-3/7 weeks intrauterine , spontaneous amniorrhexis, meconium-stained fluid. Plan: Patient will be admitted. Oxytocin augmentation per hospital protocol. Close maternal and surveillance. Anticipate normal spontaneous vaginal delivery. Time with Patient: Less than 30
[2020-03-19] MEDS ORDERED: ZOLPIDEM 5 MG TAB PO PRN (03:20)
[2020-03-19] MEDS ORDERED: diphenhydrAMINE 50 MG CAP PO PRN (03:20)
[2020-03-19] MEDS ORDERED: HYDROCORTISONE 2.5% RECTAL CREAM 30 GM TUBE RECTAL PRN (03:20)
[2020-03-19] MEDS ORDERED: diphenhydrAMINE 50 MG/ML 1 ML VIAL IVP PRN ×2 (03:20)
[2020-03-19] MEDS ORDERED: SIMETHICONE 80 MG CHEWABLE PO PRN (03:20)
[2020-03-19] MEDS ORDERED: BENZOCAINE/MENTHOL SPRAY 1 GM/SPRAY AEROSOL TOPICAL PRN (03:20)
[2020-03-19] MEDS ORDERED: ACETAMINOPHEN TAB 325 MG TAB PO PRN (03:20)
[2020-03-19] MEDS ORDERED: LANOLIN CREAM 5 GM TUBE TOPICAL PRN (03:20)
[2020-03-19] MEDS ORDERED: diphenhydrAMINE 25 MG CAP PO PRN (03:20)
--- NOTE | 2020-03-19 03:20 | P.PROBDLV ---
Vaginal Delivery Note - . Vaginal Delivery Note: This is a 24-year-old white female 1 para 0 EDC 03/22/2020 39-37 weeks' gestation. Patient presented with spontaneous amniorrhexis which occurred at home, thin meconium-stained fluid. is remarkable for renal lithiasis, ureteral stent placed at 35 weeks gestation. Please see dictated history and physical for details. Oxytocin augmentation was started and titrated per hospital protocol. Epidural was placed per her request. She progressed through the first stage of labor and became completely dilated at 0231 hours. She began the second stage of labor at that time. heart tones were reassuring throughout the first and second stages. Ultimately the perineal body was prepped and draped in the usual sterile fashion. 's head delivered spontaneously, at 0254 hours. He restituted accordingly. There was no nuchal cord noted. The left or anterior shoulder was gently delivered from underneath the pubic symphysis at which time the oropharynx, nasopharynx, and external nares were all bulb suctioned. Patient was officially delivered of a liveborn male infant at 0254 hours. Umbilical cord was doubly clamped and ligated, he was handed to waiting nurses for evaluation where scores of 8 and 9 at one and 5 minutes respectively were given. There was a true knot noted in the umbilical cord which was trivascular. Placenta delivered spontaneously, it was inspected and noted to be intact and meconium-stained at 0256 hours. At this time the perineal body was redraped. Careful inspection of the cervix, vagina, perineum, periurethral, and perirectal areas revealed 2 small bilateral labial minora lacerations. Each was repaired with a single [id number] suture of 3-0 Vicryl. Fundus is firm and in the midline, symmetric and 18 week size. All sponge needle and enhancement counts are correct at the end of the p rocedure. Patient is requesting circumcision for her infant son. Total estimated blood loss 250 mL's.
[2020-03-19] MEDS ORDERED: OXYTOCIN 20 UNITS/1000 ML NS 1,000 ML IV SCH (03:30)
[2020-03-19] MEDS: IBUPROFEN 600 MG TAB PO PRN ×3 (04:29→18:15)
[2020-03-19] MEDS ORDERED: PENICILLIN G POTASSIUM 2,500,000 UNIT in DEXTROSE 5% IN WATER 100 ML IVPB SCH ×2 (04:30)
[2020-03-19] MEDS: SENNOSIDES-DOCUSATE SODIUM 1 EACH TAB PO SCH (08:25)
[2020-03-20] MEDS: SENNOSIDES-DOCUSATE SODIUM 1 EACH TAB PO SCH ×3 (00:46→20:02)
[2020-03-20] MEDS: IBUPROFEN 600 MG TAB PO PRN ×4 (01:12→20:02)
[2020-03-20 07:46] LABS: Basophils # (A) 0.1 k/uL (0-0.2); Basophils % (A) 0 %; Eosinophils # (A) 0.4 k/uL (0-0.7); Eosinophils % (A) 2 %; HCT 29.5 % (34.0-46.0); Hypochromasia Moderate; Lymphocytes # (A) 3.1 k/uL (1.0-4.8); Lymphocytes % (A) 13 %; MCH 27.3 pg (25.0-35.0); MCHC 30.7 g/dL (31.0-37.0); Mean Platelet Volume 7.4; Monocytes % (A) 4 %; Neutrophils # (A) 18.8 k/uL (1.3-7.7); Neutrophils % (A) 80 %; Platelet Count 294 k/uL (150-450); RBC 3.32 m/uL (3.80-5.40); RDW 15.8 % (11.5-15.5); WBC 23.7 k/uL (3.8-10.6)
[2020-03-20 07:49] LABS: HGB 9.1 gm/dL (11.4-16.0)
[2020-03-20 08:21] VITALS: RESP 16
--- NOTE | 2020-03-20 14:54 | P.PNOBGVD ---
Subjective - Subjective Principal diagnosis: PPD1 Interval history: Baby requiring bili lights Patient reports: Reports appetite normal, Reports voiding normally, Reports pain well controlled, Reports ambulating normally : doing well, other Objective - Latest Vital Signs Latest vital signs: Vital Signs Temp Pulse Resp BP Pulse Ox 03/20/20 08:00 98.3 F 86 16 117/82 03/20/20 00:00 98 F 72 15 109/74 97 03/19/20 15:28 98.3 F 67 16 123/81 Intake and Output 03/19/20 03/20/20 03/20/20 22:59 06:59 14:59 Other: # Voids 1 1 1 - Exam Extremities: Present: normal, edema Abdomen: Present: normal appearance, soft. Absent: distention Uterus: Present: normal, firm. Absent: tenderness - Labs Labs: Abnormal Lab Results - Last 24 Hours (Table) 03/20/20 Range/Units 06:02 WBC 23.7 H (3.8-10.6) k/uL RBC 3.32 L (3.80-5.40) m/uL Hgb 9.1 L D (11.4-16.0) gm/dL Hct 29.5 L (34.0-46.0) % MCHC 30.7 L (31.0-37.0) g/dL RDW 15.8 H (11.5-15.5) % Neutrophils # 18.8 H (1.3-7.7) k/uL Assessment and Plan (1) Term Current Visit: Yes Status: Acute Code(s): Z34.90 - ENCNTR FOR SUPRVSN OF NORMAL , UNSP, UNSP TRIMESTER SNOMED Code(s): 49121066 (2) Normal spontaneous vaginal delivery Current Visit: Yes Status: Acute Code(s): O80 - ENCOUNTER FOR FULL-TERM UNCOMPLICATED DELIVERY SNOMED Code(s): 95947421 Plan: PPD 1 s/p . Recovering well, baby has elevated bilirubin and will be reassessed in am. Probable d/c home tomorrow.
[2020-03-21] MEDS: IBUPROFEN 600 MG TAB PO PRN (07:22)
--- NOTE | 2020-03-21 07:49 | P.DS ---
Providers Date of admission: 03/18/20 15:07 Expected date of discharge: 03/21/20 Attending physician: Nidia Oliveira Primary care physician: Stated None Hospital Course: This is a 24-year-old white female 1 para 0 EDC 03/22/2020 at 39-3/7 weeks' gestation. Patient presented in active spontaneous labor. Her was remarkable for kidney stones, with a ureteral stent placed at [address] Jackson. Rubella status immune, group B strep cultures negative, blood type O+, please see dictated history and physical for details. Oxytocin augmentation was started. Patient went on to deliver vaginally a liveborn male with scores of 8 and 9 at one and 5 minutes respectively. He weighed 3190 g or 7 pounds. The was an estimated blood loss recorded of 250 mL and a small first-degree periurethral laceration. Please see my dictated delivery note for details. This morning the patient and her are both doing well. She is declining circumcision for her son. Patient's vital signs are stable and she is afebrile. Fundus is firm and in the midline, smooth, symmetric, 18 week size. Extremities are negative for edema. Breasts are not engorged. Breast-feeding is going well. Prescription is given for a double electric breast pump. Patient is judged to be in very good condition for discharge home. I have asked her to call [facility] for instructions regarding the ureteral stent at this time. She will use Advil, Motrin or Aleve as needed for pain. She will call with any fevers shakes or chills, foul smelling or copious lochia, with the passage of large blood clots, with any pain not alleviated by [id number] products, or indeed with any concerns. I've given her prescription for a breast pump, breast-feeding at this time is going well. Call with any issues complaints or problems, or indeed with any questions or concerns. Assessment: Doing well day number to Patient Condition at Discharge: Good Plan - Discharge Summary Discharge Rx Participant: No New Discharge Prescriptions: No Action Pnv,Calcium 72/Iron/Folic Acid [ Plus Tablet] 1 tab PO DAILY MDD 1 Discharge Medication List Pnv,Calcium 72/Iron/Folic Acid [ Plus Tablet] 1 tab PO DAILY MDD 1 08/18/20 [History] Follow up Appointment(s)/Referral(s): Nidia Oliveira MD [STAFF PHYSICIAN] - 6 Weeks Discharge Disposition: HOME SELF-CARE
[2020-03-21 09:47] VITALS: BP 120/68; PULSE 66; TEMP 98.3
== END 2020-03-21 13:35 | disposition home or self-care (01) | DRG 807 ==
LOC: FBPOP 14:32 → 4FBP 15:07
PROVIDERS: ADMIT Obstetrics & Gynecology; ATTEND Obstetrics & Gynecology
PROC: 10E0XZZ Delivery of Products of Conception, External Approach (ICD-10-PCS; principal; 2020-03-19)
PROC: 0HQ9XZZ Repair Perineum Skin, External Approach (ICD-10-PCS; principal; 2020-03-19)
PROC: 00HU33Z Insertion of Infusion Device into Spinal Canal, Percutaneous Approach (ICD-10-PCS; principal; 2020-03-19)
PROC: 3E0R3BZ Introduction of Anesthetic Agent into Spinal Canal, Percutaneous Approach (ICD-10-PCS; principal; 2020-03-19)
DX: O77.0 Labor and delivery complicated by meconium in amniotic fluid (principal); Z37.0 Single live birth; O69.2XX0 Labor and delivery complicated by other cord entanglement, with compression, not applicable or unspecified; O70.0 First degree perineal laceration during delivery; Z3A.39 39 weeks gestation of pregnancy; Z87.442 Personal history of urinary calculi; Z86.19 Personal history of other infectious and parasitic diseases; Z82.49 Family history of ischemic heart disease and other diseases of the circulatory system; Z83.49 Family history of other endocrine, nutritional and metabolic diseases
CPT/HCPCS: 85025

== ENCOUNTER → 2020-04-16 | Outpatient (CLI) | payer MEDICAID, OTHER ==
[2020-04-16 17:07] LABS: Amorphous Sediment,Urine Rare /hpf; Appearance,Urine Cloudy (Clear); Bacteria,Urine Occasional /hpf; Bilirubin,Urine Negative (Negative); Blood,Urine Large (Negative); Color,Urine Yellow; Glucose,Urine (UA) Negative (Negative); Ketones,Urine Negative (Negative); Leukocyte Esterase,Urine Moderate (Negative); Mucus,Urine Rare /hpf; Nitrite,Urine Negative (Negative); PH, Urine 5.5 (5.0-8.0); Protein,Urine Trace (Negative); RBC,Urine >182 /hpf (0-5); Specific Gravity,Urine 1.013 (1.001-1.035); Squamous Epithelial Cell,Urine 6 /hpf (0-4); Urobilinogen,Urine <2.0 mg/dL (<2.0); WBC,Urine 24 /hpf (0-5)
== END | disposition home or self-care (01) ==
LOC: LABPAT 13:51
PROVIDERS: ATTEND Urology
DX: Z01.818 Encounter for other preprocedural examination (principal); N20.1 Calculus of ureter; R31.29 Other microscopic hematuria
CPT/HCPCS: 81001; 87086

== ENCOUNTER → 2020-05-27 | Outpatient (CLI) | payer MEDICAID, OTHER ==
--- NOTE | 2020-05-27 14:09 | US ---
EXAMINATION TYPE: US kidneys/renal and bladder DATE OF EXAM: 05/27/2020 COMPARISON: CT 2013 renal ultrasound February 15, 2020 CLINICAL HISTORY: N13.2 Left hydronephrosis. EXAM MEASUREMENTS: Right Kidney: 9.4 x 3.2 x 3.6 cm Left Kidney: 9.3 x 3.9 x 4.2 cm Right Kidney: No hydronephrosis or masses seen Left Kidney: No hydronephrosis or masses seen Bladder: wnl Bilateral Jets seen: Yes There is no evidence for hydronephrosis at this point in time. No nephrolithiasis is seen. No fartun s are identified. The urinary bladder is satisfactorily distended. Bilateral ureteral jets are seen . IMPRESSION: No hydronephrosis noted on current study. Improvement from recent ultrasound noted.
== END | disposition home or self-care (01) ==
LOC: RADUSWWP 13:39
PROVIDERS: ATTEND Urology
DX: N13.2 Hydronephrosis with renal and ureteral calculous obstruction (principal)
CPT/HCPCS: 76770

== ENCOUNTER 2021-01-11 09:54 | Emergency (ER) | payer MEDICAID, OTHER ==
--- NOTE | 2021-01-11 10:43 | ED ---
Headache HPI - General Chief Complaint: Headache Stated Complaint: headache, facial pain Time Seen by Provider: 01/11/21 10:19 Source: patient, RN notes reviewed Mode of arrival: ambulatory Limitations: no limitations - History of Present Illness Initial Comments: 25-year-old female presents emergency Department chief complaint of headache. Patient states she's been having frequent headaches states it happens couple times a week. Patient states that his headaches and states that worse was not sudden onset she has minutes right-sided she has some photophobia. Denies any fevers chills no neck pain neck stiffness. Patient states she took Tylenol yesterday nothing today no relief of symptoms with Tylenol. She will does admit to some nausea without vomiting no focal weakness. - Related Data Home Medications Medication Instructions Recorded Confirmed Pnv,Calcium 72/Iron/Folic Acid 1 tab PO DAILY MDD 1 03/18/20 04/23/20 [ Plus Tablet] Allergies Allergy/AdvReac Type Severity Reaction Status Date / Time No Known Allergies Allergy Verified 01/11/21 10:08 Review of Systems ROS Statement: Those systems with pertinent positive or pertinent negative responses have been documented in the HPI. ROS Other: All systems not noted in ROS Statement are negative. Past Medical History Additional Past Medical History / Comment(s): RENAL CALCULUS, mononucleosis 2011, recent admission for bilateral kidney stones History of Any Multi-Drug Resistant Organisms: None Reported Past Surgical History: No Surgical Hx Reported Additional Past Surgical History / Comment(s): lithotripsy Past Anesthesia/Blood Transfusion Reactions: No Reported Reaction Past Psychological History: No Psychological Hx Reported Smoking Status: Never smoker Past Alcohol Use History: None Reported Past Drug Use History: None Reported - Past Family History Mother Family Medical History: No Reported History Father Family Medical History: Hypertension, Thyroid Disorder General Exam Limitations: no limitations General appearance: alert, in no apparent distress Head exam: Present: atraumatic, normocephalic, normal inspection Eye exam: Present: normal appearance, PERRL, EOMI. Absent: scleral icterus, conjunctival injection, periorbital swelling ENT exam: Present: normal exam, mucous membranes moist. Absent: normal oropharynx, TM's normal bilaterally Neck exam: Present: normal inspection, full ROM. Absent: tenderness, meningismus, lymphadenopathy Respiratory exam: Present: normal lung sounds bilaterally. Absent: respiratory distress, wheezes, rales, rhonchi, stridor Cardiovascular Exam: Present: regular rate, normal rhythm, normal heart sounds. Absent: systolic murmur, diastolic murmur, rubs, gallop, clicks GI/Abdominal exam: Present: soft, normal bowel sounds. Absent: distended, tenderness, guarding, rebound, rigid Neurological exam: Present: alert, oriented X3, CN II-XII intact, reflexes normal. Absent: motor sensory deficit Skin exam: Present: warm, dry, intact, normal color. Absent: rash Course Vital Signs 01/11/21 10:03 Temperature 98.2 F Pulse Rate 72 Respiratory 18 Rate Blood Pressure 152/105 O2 Sat by Pulse 100 Oximetry Medical Decision Making - Medical Decision Making 25-year-old female presented from for headache. CT is unremarkable she had no prior imaging. Patient was given a migraine cocktail which headache has improved. Patient discharged with follow-up with neurology. Return parameters discussed. Disposition Clinical Impression: Migraine headache Disposition: HOME SELF-CARE Condition: Stable Instructions (If sedation given, give patient instructions): Acute Headache (ED) Additional Instructions: Please return to the Emergency Department if symptoms worsen or any other concerns. Is patient prescribed a controlled substance at d/c from ED?: No Referrals: Jax Roman Jr, DO [Primary Care Provider] - 1-2 days Roberto Aponte MD [REFERRING] - 1-2 days Jarrell Garcia DO [STAFF PHYSICIAN] - 1-2 days Time of Disposition: 12:42
--- NOTE | 2021-01-11 11:00 | CT ---
EXAMINATION TYPE: CT brain wo con DATE OF EXAM: 01/11/2021 COMPARISON: None HISTORY: 25 year-old female right sided facial pain, migraine TECHNIQUE: Examination was done in axial plane without intravenous contrast. Coronal and sagittal r econstructions performed. CT DLP: 1033.4 mGycm Automated exposure control for dose reduction was used. FINDINGS: There is no evidence of acute intracranial hemorrhage, acute ischemic changes, mass, mass-effect, or extra-axial fluid collection. There is no effacement of cerebral sulci or basal subarachnoid cister ns. There is no hydrocephalus. There is no midline shift. Landis-white matter distinction is preserv ed. Visualized paranasal sinuses and mastoid air cells are well-pneumatized. Orbits and globes are intact . IMPRESSION: No acute intracranial abnormality seen.
[2021-01-11] MEDS ORDERED: METOCLOPRAMIDE 5 MG/ML 2 ML VIAL IVP STA (11:10)
[2021-01-11] MEDS ORDERED: KETOROLAC 15 MG/ML 1 ML VIAL IVP STA (11:10)
[2021-01-11] MEDS ORDERED: SODIUM CHLORIDE 0.9% 500 ML 500 ML IV ONE (11:10)
[2021-01-11] MEDS ORDERED: diphenhydrAMINE 50 MG/ML 1 ML VIAL IVP STA (11:10)
[2021-01-11 13:08] VITALS: BP 128/87; PULSE 73; RESP 16; TEMP 98
== END 2021-01-11 13:06 | disposition home or self-care (01) ==
LOC: EC 09:54
DX: G43.909 Migraine, unspecified, not intractable, without status migrainosus (principal)
CPT/HCPCS: 96374; 96375 ×3; 99283; 96361; 70450; J1200; J2765; J1885; J1790

== ENCOUNTER 2021-05-26 19:59 | Emergency (ER) | payer OTHER, MEDICAID ==
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
[2021-05-26] MEDS ORDERED: KETOROLAC 15 MG/ML 1 ML VIAL IM STA (21:59)
[2021-05-26] MEDS ORDERED: ACETAMINOPHEN TAB 325 MG TAB PO STA (22:23)
--- NOTE | 2021-05-26 22:37 | XR ---
EXAMINATION TYPE: XR elbow complete LT DATE OF EXAM: 05/26/2021 COMPARISON: NONE HISTORY: Pain TECHNIQUE: 3 views FINDINGS: I see no fracture nor dislocation. Joint spaces are normal. There is no sign of elbow joint effusion. IMPRESSION: Negative left elbow exam.
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
[2021-05-26 23:03] VITALS: BP 136/74; PULSE 84; RESP 15; TEMP 97.7
== END 2021-05-26 23:00 | disposition home or self-care (01) ==
LOC: EC 19:59
DX: M25.522 Pain in left elbow (principal); Z87.442 Personal history of urinary calculi
CPT/HCPCS: 99284; 73080; 72125; 70450; L0120

== ENCOUNTER → 2022-03-02 | Outpatient (CLI) | payer MEDICAID, OTHER ==
[~2022-03-02] MED LIST: BEBTELOVIMAB (EUA) 175 MG/2 ML VIAL IV NR; SODIUM CHLORIDE 0.9% 500 ML 500 ML in EMPTY BAG 1 BAG IV PRN
[2022-03-02 13:04] VITALS: RESP 16; TEMP 98.2
[2022-03-02 13:47] VITALS: BP 124/84; PULSE 88
== END ==
LOC: PROCWHC3 12:26
PROVIDERS: ATTEND Nurse Practitioner Family
DX: O98.519 Other viral diseases complicating pregnancy, unspecified trimester (principal); U07.1 COVID-19; Z3A.00 Weeks of gestation of pregnancy not specified
CPT/HCPCS: Q0222; M0222

== ENCOUNTER → 2022-07-23 | Outpatient (CLI) | payer BC, OTHER | END | disposition home or self-care (01) | LOC: LABWHC1 08:58 | PROVIDERS: ATTEND Obstetrics & Gynecology | DX: Z36.9 Encounter for antenatal screening, unspecified (principal) | CPT/HCPCS: 36415; 82950 ==

== ENCOUNTER → 2022-08-04 | Outpatient (CLI) | payer BC, OTHER ==
[2022-08-04 13:57] LABS: Glucose 3 Hour, Gest 87 mg/dL
== END | disposition home or self-care (01) ==
LOC: LABWHC1 07:55
PROVIDERS: ATTEND Obstetrics & Gynecology
DX: O99.810 Abnormal glucose complicating pregnancy (principal); Z3A.00 Weeks of gestation of pregnancy not specified
CPT/HCPCS: 36415; 82951; 82952

== ENCOUNTER 2022-10-22 13:30 | Inpatient (IN) | payer BC, OTHER ==
[2022-10-22 16:35] LABS: Appearance,Urine Cloudy (Clear); Bacteria,Urine Moderate /hpf; Bilirubin,Urine Negative (Negative); Blood,Urine Negative (Negative); Color,Urine Yellow; Glucose,Urine (UA) Negative (Negative); Ketones,Urine Negative (Negative); Leukocyte Esterase,Urine Large (Negative); Mucus,Urine Rare /hpf; Nitrite,Urine Negative (Negative); PH, Urine 6.5 (5.0-8.0); Protein,Urine Negative (Negative); RBC,Urine 1 /hpf (0-5); Specific Gravity,Urine 1.015 (1.001-1.035); Squamous Epithelial Cell,Urine 4 /hpf (0-4); Urobilinogen,Urine <2.0 mg/dL (<2.0); WBC,Urine 9 /hpf (0-5)
[2022-10-22 16:43] LABS: Creatinine,Urine Random 82.3 mg/dL; Protein/Creatinine Ratio,Urine 0.17
[2022-10-22 16:53] LABS: ALT 13 U/L (4-34); AST 18 U/L (14-36); African American GFR (CKD) >90 (>60 ml/min/1.73 sqM); Blood Urea Nitrogen 11 mg/dL (7-17); LDH 158 U/L (120-246); Non-African American GFR(CKD) >90 (>60 ml/min/1.73 sqM); Uric Acid 5.9 mg/dL (3.7-7.4)
[2022-10-22 16:57] LABS: Basophils # (A) 0.1 k/uL (0-0.2); Basophils % (A) 0 %; Eosinophils # (A) 0.1 k/uL (0-0.7); Eosinophils % (A) 1 %; HCT 31.7 % (34.0-46.0); HGB 10.2 gm/dL (11.4-16.0); Hypochromasia Slight; Lymphocytes # (A) 2.7 k/uL (1.0-4.8); Lymphocytes % (A) 18 %; MCH 25.8 pg (25.0-35.0); MCHC 32.1 g/dL (31.0-37.0); MCV 80.5 fL (80.0-100.0); Mean Platelet Volume 8.3; Monocytes # (A) 0.6 k/uL (0-1.0); Monocytes % (A) 4 %; Neutrophils # (A) 11.2 k/uL (1.3-7.7); Neutrophils % (A) 75 %; Platelet Count 275 k/uL (150-450); Poikilocytosis Slight; RBC 3.94 m/uL (3.80-5.40); RDW 14.8 % (11.5-15.5); WBC 14.9 k/uL (3.8-10.6)
--- NOTE | 2022-10-22 17:39 | P.HPOB ---
History of Present Illness H&P Date: 10/22/22 Chief Complaint: contractions Ms. Alexander is a 27 year old at 39 weeks and 0 days with EDC of 10/29/22 who presents with regular, painful contractions. Obstetric history: 1 FTVD, male, 2020, 7#, no complications Maternal serologies: blood type O positive, antibody negative, rubella non- immune, VDRL non-reactive, HBsAg negative, HIV negative, gonorrhea negative, chl amydia negative, 1 hour GTT 142, passed 3 hour GTT, GBS negative. Past Medical History Additional Past Medical History / Comment(s): RENAL CALCULUS, mononucleosis 2011, recent admission for bilateral kidney stones History of Any Multi-Drug Resistant Organisms: None Reported Past Surgical History: No Surgical Hx Reported Additional Past Surgical History / Comment(s): lithotripsy Past Anesthesia/Blood Transfusion Reactions: No Reported Reaction Smoking Status: Never smoker - Past Family History Mother Family Medical History: No Reported History Father Family Medical History: Hypertension, Thyroid Disorder Medications and Allergies Home Medications Medication Instructions Recorded Confirmed Type Vit No.180/Iron/Folic 1 tab PO DAILY MDD 1 03/18/20 10/22/22 History [ Plus Tablet] Allergies Allergy/AdvReac Type Severity Reaction Status Date / Time No Known Allergies Allergy Verified 10/22/22 13:50 Exam Intake and Output 10/22/22 10/22/22 10/22/22 06:59 14:59 22:59 Other: Weight 89.358 kg Focused physical exam is performed. This is a healthy-appearing in no apparent distress. Cervical exam is 3.5/70/-3. AROM is undertaken for clear fluid. FHTs are Category I. Tocometer shows contractions every 3-5 minutes. Results Result Diagrams: 10/22/22 16:30 10/22/22 16:30 Abnormal Lab Results - Last 24 Hours (Table) 10/22/22 10/22/22 Range/Units 16:20 16:30 WBC 14.9 H (3.8-10.6) k/uL Hgb 10.2 L (11.4-16.0) gm/dL Hct 31.7 L (34.0-46.0) % Neutrophils # 11.2 H (1.3-7.7) k/uL Urine Appearance Cloudy H (Clear) Ur Leukocyte Esterase Large H (Negative) Urine WBC 9 H (0-5) /hpf Urine Bacteria Moderate H (None) /hpf Urine Mucus Rare H (None) /hpf Assessment and Plan Assessment: 27 year old at 39 weeks and 0 days who presents in labor. Plan: Admit, mIVF, NPO, epidural prn, continuous EFM, oxytocin augmentation. Time with Patient: Less than 30 (15 minutes)
[2022-10-22] MEDS ORDERED: CARBOPROST TROMETHAMINE 250 MCG/ML 1 ML AMP IM PRN (17:59)
[2022-10-22] MEDS ORDERED: miSOPROStoL 200 MCG TAB PO PRN (17:59)
[2022-10-22] MEDS ORDERED: LIDOCAINE 0.5% (PF) 5 MG/ML (50 ML SDV) SQ PRN (17:59)
[2022-10-22] MEDS ORDERED: OXYTOCIN 10 UNIT/ML 1 ML VIAL IM PRN (17:59)
[2022-10-22] MEDS ORDERED: METHYLERGONOVINE 0.2 MG/ML 1 ML AMP IM PRN (17:59)
[2022-10-22] MEDS ORDERED: TERBUTALINE 1 MG/ML VIAL SQ PRN (17:59)
[2022-10-22] MEDS ORDERED: TRANEXAMIC ACID IN NACL,ISO-OS 1,000 MG in EMPTY BAG 1 BAG IV PRN (17:59)
[2022-10-22] MEDS ORDERED: OXYTOCIN 30 UNITS/500 ML NS 30 UNIT in SALINE 1 500ML.BAG IV SCH (18:00)
[2022-10-22] MEDS ORDERED: fentaNYL (PF) 50 MCG/ML 5 ML AMP ONE (19:15)
[2022-10-22] MEDS ORDERED: SODIUM CHLORIDE 0.9% 100 ML BAG ONE (19:15)
[2022-10-22] MEDS ORDERED: ROPIVACAINE 5 MG/ML 20 ML AMPULE ONE (19:15)
[2022-10-22] MEDS: LACTATED RINGERS 1,000 ML IV SCH (19:51)
--- NOTE | 2022-10-23 03:35 | P.PROBDLV ---
Vaginal Delivery Note - . Vaginal Delivery Note: DATE OF SERVICE: 10/23/2022 PROCEDURE: Spontaneous Vaginal Delivery ATTENDING: Dr. Ayesha Pena MD ESTIMATED BLOOD LOSS: 150 mL FINDINGS: VMI, Apgars 9/9, weight 8 pounds 6 ounces PROCEDURE: Patient was a 27 y/o at 39 weeks and 0 days who presented to labor and delivery in labor. She was noted to have a few mild-range blood pressures. She was admitted and AROM was undertaken for clear fluid. The patient received epidural anesthesia per her request. Oxytocin augmentation was started. She progressed to complete dilation. Head delivered and a 2-minute shoulder dystocia was encountered. Please see the separate sheet the documents in detail the maneuvers required to deliver the infant. The infant was placed on maternal abdomen and bulb suctioned. Cord was clamped and cut immediately and the was taken to the warmer with the pediatric team. Placenta delivered whole with gentle cord traction. Oxytocin was started to facilitate uterine tone. Uterine fundus firm and bleeding minimal upon fundal massage. Perineal inspection revealed a small left labia minora laceration repaired in running fashion with 3-0 Vicryl. Patient stable . Infant has no signs of clavicle or humerus fracture on exam. Infant moving both arms spontaneously. Appears not to have any deficits.
[2022-10-23] MEDS ORDERED: diphenhydrAMINE 25 MG CAP PO PRN (03:38)
[2022-10-23] MEDS ORDERED: LANOLIN CREAM 5 GM TUBE TOPICAL PRN (03:38)
[2022-10-23] MEDS ORDERED: BENZOCAINE/MENTHOL SPRAY 1 GM/SPRAY AEROSOL TOPICAL PRN (03:38)
[2022-10-23] MEDS ORDERED: diphenhydrAMINE 50 MG/ML 1 ML VIAL IVP PRN ×2 (03:38)
[2022-10-23] MEDS ORDERED: ZOLPIDEM 5 MG TAB PO PRN (03:38)
[2022-10-23] MEDS ORDERED: SIMETHICONE 80 MG CHEWABLE PO PRN (03:38)
[2022-10-23] MEDS ORDERED: diphenhydrAMINE 50 MG CAP PO PRN (03:38)
[2022-10-23] MEDS ORDERED: HYDROCORTISONE 2.5% RECTAL CREAM 30 GM TUBE RECTAL PRN (03:38)
[2022-10-23] MEDS ORDERED: OXYTOCIN 30 UNITS/500 ML NS 30 UNIT in SALINE 1 500ML.BAG IV SCH (03:45)
[2022-10-23] MEDS: IBUPROFEN 600 MG TAB PO PRN ×3 (07:31→22:16)
[2022-10-23] MEDS: SENNOSIDES-DOCUSATE SODIUM 1 EACH TAB PO SCH ×2 (07:31→19:31)
[2022-10-23] MEDS: ACETAMINOPHEN TAB 325 MG TAB PO PRN ×2 (12:52→19:30)
[2022-10-23] MEDS ORDERED: MEASLES-MUMPS-RUBELLA VACC/PF 12,500 UNIT/0.5 ML VIAL SQ ONE (16:09)
[2022-10-23] MEDS: LACTATED RINGERS 1,000 ML IV SCH (21:17)
[2022-10-24] MEDS: ACETAMINOPHEN TAB 325 MG TAB PO PRN ×2 (02:02→18:49)
[2022-10-24 05:44] LABS: Basophils # (A) 0.1 k/uL (0-0.2); Basophils % (A) 0 %; Eosinophils # (A) 0.2 k/uL (0-0.7); Eosinophils % (A) 1 %; HCT 29.4 % (34.0-46.0); HGB 9.5 gm/dL (11.4-16.0); Hypochromasia Moderate; Lymphocytes # (A) 3.6 k/uL (1.0-4.8); Lymphocytes % (A) 21 %; MCH 25.8 pg (25.0-35.0); MCHC 32.1 g/dL (31.0-37.0); MCV 80.4 fL (80.0-100.0); Mean Platelet Volume 8.6; Monocytes # (A) 0.6 k/uL (0-1.0); Monocytes % (A) 3 %; Neutrophils # (A) 12.2 k/uL (1.3-7.7); Neutrophils % (A) 72 %; Platelet Count 250 k/uL (150-450); Poikilocytosis Slight; RBC 3.66 m/uL (3.80-5.40); RDW 15.3 % (11.5-15.5)
[2022-10-24] MEDS: IBUPROFEN 600 MG TAB PO PRN ×3 (07:26→21:25)
--- NOTE | 2022-10-24 08:12 | P.PNOBGVD ---
Subjective - Subjective Principal diagnosis: Vaginal Delivery complicated by shoulder dystocia Interval history: The patient is doing well this morning and had no acute events overnight. She has no complaints this morning. She reports minimal lochia, passing flatus, voiding without difficulty, ambulating, and eating/drinking without nausea or vomiting. She is her without difficulty. She denies chest pain, shortness of breathing, fevers, or chills overnight. She denies pain or swelling in the legs. Patient reports: Reports appetite normal, Reports voiding normally, Reports pain well controlled, Reports ambulating normally [place]: doing well, nursing well (getting phototherapy), other Objective - Latest Vital Signs Latest vital signs: Vital Signs Temp Pulse Resp BP Pulse Ox 10/24/22 07:49 98.0 F 87 16 120/72 10/24/22 04:00 97.8 F 80 16 124/78 97 10/24/22 00:00 97.8 F 74 16 129/83 97 10/23/22 19:47 97.9 F 93 16 122/79 97 10/23/22 16:00 97.6 F 81 16 125/76 10/23/22 12:00 97.0 F L 80 16 117/56 Intake and Output 10/23/22 10/24/22 10/24/22 22:59 06:59 14:59 Other: # Voids 2 2 1 - Exam Extremities: Present: normal Abdomen: Present: normal appearance, soft Uterus: Present: normal, firm - Labs Labs: Abnormal Lab Results - Last 24 Hours (Table) 10/24/22 Range/Units 05:14 WBC 17.0 H (3.8-10.6) k/uL RBC 3.66 L (3.80-5.40) m/uL Hgb 9.5 L (11.4-16.0) gm/dL Hct 29.4 L (34.0-46.0) % Neutrophils # 12.2 H (1.3-7.7) k/uL Assessment and Plan Assessment: 27 year old now PPD#1 s/p vaginal delivery complicated by shoulder dystocia Plan: Patient meeting all milestones appropriately. Infant male doing well at the bedside but getting phototherapy. Will discharge home this afternoon if baby is discharged. Patient declines circumcision for infant.
--- NOTE | 2022-10-24 08:17 | P.DS ---
Providers Date of admission: 10/22/22 17:16 Expected date of discharge: 10/24/22 Attending physician: Nidia Oliveira Primary care physician: Stated None Hospital Course: This is a 27 year old now day #1 s/p vaginal delivery complicated by shoulder dystocia at 39 weeks and 1 day. The patient presented in early labor and was noted to have mild-range blood pressures. The diagnosis of gestational hypertension was made. She was admitted and labor was augmented with oxytocin and AROM. Clear fluid was noted after AROM. She progressed to complete dilation and the shoulder dystocia was encountered. Please see separate documen tation for details about the maneuvers used during the shoulder dystocia. The male is doing well without any apparent fractures or nerve palsies. The patient declines circumcision for her son. The patient is doing well and meeting all milestones. She desires discharge home today. I encouraged the patient to call the office if she is experiencing heavy bleeding, foul-smelling vaginal discharge, severe pain, breast complaints, or if she has any other concerns. I discussed the recommendation for 6 weeks of abstinence. She will follow up in the office with Dr. Oliveira in 1 week for blood pressure check and in 6 weeks for visit. Assessment: 27 year old PPD#1 s/p vaginal delivery complicated by shoulder dystocia Patient Condition at Discharge: Good Plan - Discharge Summary Discharge Rx Participant: No New Discharge Prescriptions: No Action Vit No.180/Iron/Folic [ Plus Tablet] 1 tab PO DAILY MDD 1 Discharge Medication List Vit No.180/Iron/Folic [ Plus Tablet] 1 tab PO DAILY MDD 1 03/18/20 [History] Follow up Appointment(s)/Referral(s): Nidia Oliveira MD [STAFF PHYSICIAN] - 1 Week (blood pressure check) Patient Instructions/Handouts: Your Baby (DC), Expression, Collection and Storage of Breast Milk (DC), How to Increase Your Milk Supply (DC), How to Tell if Your Baby is Getting Enough Breast Milk (DC), Depression (DC), Perineal Care (DC), Bleeding (DC), Vaginal Delivery (DC) Activity/Diet/Wound Care/Special Instructions: Pelvic rest for 6 weeks. Otherwise activity as tolerated. Discharge Disposition: HOME SELF-CARE
[2022-10-24] MEDS: SENNOSIDES-DOCUSATE SODIUM 1 EACH TAB PO SCH ×2 (09:50→18:49)
[2022-10-25] MEDS: ACETAMINOPHEN TAB 325 MG TAB PO PRN ×2 (01:05→07:21)
[2022-10-25] MEDS: IBUPROFEN 600 MG TAB PO PRN (05:01)
[2022-10-25 07:38] VITALS: BP 131/74; PULSE 72; RESP 14; TEMP 98.1
[2022-10-25] MEDS: SENNOSIDES-DOCUSATE SODIUM 1 EACH TAB PO SCH (09:05)
== END 2022-10-25 09:10 | disposition home or self-care (01) | DRG 807 ==
LOC: FBPOP 13:30 → 4FBP 17:16
PROVIDERS: ADMIT Obstetrics & Gynecology; ATTEND Obstetrics & Gynecology
PROC: 10E0XZZ Delivery of Products of Conception, External Approach (ICD-10-PCS; principal; 2022-10-22)
PROC: 10907ZC Drainage of Amniotic Fluid, Therapeutic from Products of Conception, Via Natural or Artificial Opening (ICD-10-PCS; 2022-10-22)
PROC: 3E033VJ Introduction of Other Hormone into Peripheral Vein, Percutaneous Approach (ICD-10-PCS; 2022-10-22)
PROC: 0UQMXZZ Repair Vulva, External Approach (ICD-10-PCS; 2022-10-22)
PROC: 4A0HXCZ Measurement of Products of Conception, Cardiac Rate, External Approach (ICD-10-PCS; 2022-10-22)
DX: O13.4 Gestational [pregnancy-induced] hypertension without significant proteinuria, complicating childbirth (principal); O70.0 First degree perineal laceration during delivery; Z37.0 Single live birth; O66.0 Obstructed labor due to shoulder dystocia; Z3A.39 39 weeks gestation of pregnancy; Z87.442 Personal history of urinary calculi
CPT/HCPCS: 36415; 59025; 81001; 82565; 82570; 83615; 84156; 84450; 84460; 84520; 84550; 85025; 86850; 86900; 86901; 90471; 90707; 99215

== ENCOUNTER 2023-10-19 18:13 | Emergency (ER) | payer BC, OTHER ==
[2023-10-19 18:32] VITALS: RESP 18; TEMP 98.2
--- NOTE | 2023-10-19 19:11 | ED ---
General Adult HPI - General Chief complaint: Urogenital Stated complaint: Dysuria, 7wks Time Seen by Provider: 10/19/23 18:26 Source: patient, RN notes reviewed Mode of arrival: ambulatory Limitations: no limitations - History of Present Illness Initial comments: Patient is a pleasant 28-year-old female presenting to the emergency department with concerns for urinary symptoms. Onset of symptoms was 2 to 3 days ago. Patient has urinary frequency and dysuria. No hematuria. Patient is around 7 weeks . No pelvic pain or vaginal bleeding. - Related Data Home Medications Medication Instructions Recorded Confirmed Vit No.180/Iron/Folic 1 tab PO DAILY MDD 1 03/18/20 10/22/22 [ Plus Tablet] Allergies Allergy/AdvReac Type Severity Reaction Status Date / Time No Known Allergies Allergy Verified 10/19/23 18:19 Review of Systems ROS Statement: Those systems with pertinent positive or pertinent negative responses have been documented in the HPI. ROS Other: All systems not noted in ROS Statement are negative. Constitutional: Denies: fever Eyes: Denies: eye pain ENT: Denies: ear pain Respiratory: Denies: cough Cardiovascular: Denies: chest pain Endocrine: Denies: fatigue Gastrointestinal: Denies: abdominal pain, nausea, vomiting Genitourinary: Reports: as per HPI, dysuria, frequency Past Medical History Additional Past Medical History / Comment(s): RENAL CALCULUS, mononucleosis 2011, recent admission for bilateral kidney stones History of Any Multi-Drug Resistant Organisms: None Reported Past Surgical History: No Surgical Hx Reported Additional Past Surgical History / Comment(s): lithotripsy Past Anesthesia/Blood Transfusion Reactions: No Reported Reaction Past Psychological History: No Psychological Hx Reported Smoking Status: Never smoker Past Alcohol Use History: None Reported Past Drug Use History: None Reported - Past Family History Mother Family Medical History: No Reported History Father Family Medical History: Hypertension, Thyroid Disorder General Exam Limitations: no limitations General appearance: alert, in no apparent distress Head exam: Present: normocephalic Eye exam: Present: normal appearance Neck exam: Present: normal inspection Respiratory exam: Present: normal lung sounds bilaterally Cardiovascular Exam: Present: regular rate, normal rhythm GI/Abdominal exam: Present: soft. Absent: distended, tenderness Extremities exam: Present: normal inspection Back exam: Present: normal inspection. Absent: tenderness, CVA tenderness (R), CVA tenderness (L) Neurological exam: Present: alert Psychiatric exam: Present: normal affect, normal mood Skin exam: Present: normal color Course Vital Signs 10/19/23 10/19/23 18:17 21:00 Temperature 98.2 F Pulse Rate 89 81 Respiratory 18 18 Rate Blood Pressure 143/88 126/79 O2 Sat by Pulse 95 100 Oximetry Medical Decision Making - Medical Decision Making Was pt. sent in by a medical professional or institution (, D[facility]RICK, WOOD CABINET FINISHER, urgent care, hospital, or alf...) When possible be specific @ -No Did you speak to anyone other than the patient for history (EMS, parent, family, police, friend...)? What history was obtained from this source @ -No Did you review nursing and triage notes (agree or disagree)? Why? @ -I reviewed and agree with nursing and triage notes Were old charts reviewed (outside hosp., previous admission, EMS record, old EKG, old radiological studies, urgent care reports/EKG's, alf records)? Report findings @ -No old charts were reviewed Differential Diagnosis (chest pain, altered mental status, abdominal pain women, abdominal pain men, vaginal bleeding, weakness, fever, dyspnea, syncope, headache, dizziness, GI bleed, back pain, seizure, CVA, palpatations, mental health, musculoskeletal)? @ -Differential Abdominal Pain Women: Appendicitis, Cholecystitis, diverticulosis, ischemic bowel, pancreatitis, hepatitis, UTI, gastroenteritis, AAA, incarcerated hernia, bowel obstruction, constipation, inflammatory bowel, hepatitis, peptic ulcer disease, splenic infarction, perforated viscus, vulvitis, ovarian torsion, PID, kidney stone, placenta abruption, this is not meant to be an all-inclusive list EKG interpreted by me (3pts min.). @ -As above X-rays interpreted by me (1pt min.). @ -None done CT interpreted by me (1pt min.). @ -None done U/S interpreted by me (1pt. min.). @ -Ultrasound shows probable gestational sac at 5 weeks 6 days What testing was considered but not performed or refused? (CT, X-rays, U/S, labs)? Why? @ -None What meds were considered but not given or refused? Why? @ -None Did you discuss the management of the patient with other professionals (professionals i.e. Dr., PA, WOOD CABINET FINISHER, lab, RT, psych nurse, transition social worker, infant babysitter, teacher, tactical debriefer officer, continuous pillowcase cutter)? Give summary @ -No Was smoking cessation discussed for >3mins.? @ -No Was critical care preformed (if so, how long)? @ -No Were there social determinants of health that impacted care today? How? (Homelessness, low income, unemployed, alcoholism, drug addiction, transportation, low edu. Level, literacy, decrease access to med. care, long-term, rehab)? @ -No Was there de-escalation of care discussed even if they declined (Discuss DNR or withdrawal of care, Hospice)? DNR status @ -No What co-morbidities impacted this encounter? (DM, HTN, Smoking, COPD, CAD, Cancer, CVA, ARF, Chemo, Hep., AIDS, mental health diagnosis, sleep apnea, morbid obesity)? @ -None Was patient admitted / discharged? Hospital course, mention meds given and route, prescriptions, significant lab abnormalities, going to OR and other pertinent info. @ -Patient reevaluated and updated. Patient will have beta-hCG drawn prior to discharge and repeat in 48 hours. Patient is recommended follow-up PLANT TECHNICIAN/CONTROL ROOM OPERATOR within 48 hours regarding this and will be provided number. Undiagnosed new problem with uncertain prognosis? @ -No Drug Therapy requiring intensive monitoring for toxicity (Heparin, Nitro, Insulin, Cardizem)? @ -No Were any procedures done? @ -No Diagnosis/symptom? @ -Dysuria Acute, or Chronic, or Acute on Chronic? @ -Acute Uncomplicated (without systemic symptoms) or Complicated (systemic symptoms)? @ -Default Side effects of treatment? @ -No Exacerbation, Progression, or Severe Exacerbation? @ -No Poses a threat to life or bodily function? How? (Chest pain, [place], [place], pneumonia, PE, COPD, DKA, ARF, appy, cholecystitis, CVA, Diverticulitis, Homicidal, S uicidal, threat to staff... and all critical care pts) @ -No - Lab Data Lab Results 10/19/23 10/19/23 Range/Units 18:35 18:35 Urine Color Yellow Urine Appearance Cloudy H (Clear) Urine pH 5.5 (5.0-8.0) Ur Specific [place] 1.029 (1.001-1.035) Urine Protein Negative (Negative) Urine Glucose (UA) Negative (Negative) Urine Ketones Trace H (Negative) Urine Blood Trace H (Negative) Urine Nitrite Negative (Negative) Urine Bilirubin Negative (Negative) Urine Urobilinogen <2.0 (<2.0) mg/dL Ur Leukocyte Esterase Negative (Negative) Urine RBC 10 H (0-5) /hpf Urine WBC 3 (0-5) /hpf Ur Squamous Epith Cells 18 H (0-4) /hpf Calcium Oxalate Crystal Few H (None) /hpf Urine Mucus Rare H (None) /hpf Urine HCG, Qual Detected (Not Detectd) Disposition Clinical Impression: Dysuria Disposition: HOME SELF-CARE Condition: Stable Instructions (If sedation given, give patient instructions): Threatened Miscarriage (ED) Additional Instructions: Please do follow-up with PLANT TECHNICIAN/CONTROL ROOM OPERATOR within 48 hours. You should have repeat blood work done, prescription provided. Please follow-up with your primary care physician as well. Return for bleeding, increased pain, worsening or changing symptoms or any other concerns. please also have your doctor follow-up with urine culture. Is patient prescribed a controlled substance at d/c from ED?: No Referrals: Jax Roman Jr, DO [Primary Care Provider] - 1-2 days Ester Renee DO [Doctor of Osteopathic Medicine] - 1-2 days Time of Disposition: 22:18
[2023-10-19 19:16] LABS: Appearance,Urine Cloudy (Clear); Bilirubin,Urine Negative (Negative); Blood,Urine Trace (Negative); Calcium Oxalate Crystals,Urine Few /hpf; Color,Urine Yellow; Glucose,Urine (UA) Negative (Negative); Ketones,Urine Trace (Negative); Leukocyte Esterase,Urine Negative (Negative); Mucus,Urine Rare /hpf; Nitrite,Urine Negative (Negative); PH, Urine 5.5 (5.0-8.0); Protein,Urine Negative (Negative); RBC,Urine 10 /hpf (0-5); Specific Gravity,Urine 1.029 (1.001-1.035); Squamous Epithelial Cell,Urine 18 /hpf (0-4); Urobilinogen,Urine <2.0 mg/dL (<2.0); WBC,Urine 3 /hpf (0-5)
--- NOTE | 2023-10-19 22:13 | US ---
EXAMINATION TYPE: Ultrasound OB <=14 week fetus DATE OF EXAM: 10/19/2023 8:13 PM COMPARISON: NONE CLINICAL INDICATION: Female, 28 years old with history of pain; Pt states frequent urination, burning with urination, lower back pain. No cramping, no bleeding. . Hx of renal stones EXAM PERFORMED: Transabdominal (TA) ultrasound of the pelvis performed. EXAM MEASUREMENTS: GESTATIONAL AGE / DATING Physician Established: Not yet established Dates by LMP: (7 weeks/0 days) EDC: 06/06/24 Dates by First Scan: No previous this is first scan Dates by Current Scan for: Presumed gestational sac has a mean diameter 1.5 cm, which would correspon d to a 5 weeks 6 days gestational age with an PEDRO LUIS by this study of 06/14/2024. MATERNAL ANATOMY Uterus: 9.8 x 6.4 x 5.3cm. Appears heterogenous with thickened appearance of the endometrium. An intr auterine sonolucency is seen with a mean diameter 1.5 cm, which may represent a gestational sac. Wood lizbeth, no pole or yolk sac is seen at this time. Right Ovary: 2.7 x 2.1 x 1.7cm Left Ovary: 3.2 x 2.3 x 1.0cm Post CDS / Adnexa: wnl Presence of free fluid: No Presence of corpus luteal cyst: Not seen Presence of subchorionic bleed: No GESTATION / SURVEY CRL: Not seen MSD: 1.5cm (5 weeks/6 days, if this is a gestational sac) Yolk Sac (normal less than 6mm): Not seen Date of LMP: 08/31/23 Beta HcG (if available): Not available at this time No adnexal mass identified. IMPRESSION: 1. Intrauterine sonolucency is seen suggesting a gestational sac, if so this measures 5 weeks 6 days . However, no pole or yolk sac is seen at this time; likely considerations include normal early IUP or blighted ovum/anembryonic , less likely occult ectopic. Recommend follow-up of seri al serum beta-hCG levels, and ultrasound/s as needed. 2. No adnexal mass or free pelvic fluid.
[2023-10-19 22:51] VITALS: BP 119/78; PULSE 82
== END 2023-10-19 22:33 | disposition home or self-care (01) ==
LOC: EC 18:13
DX: O99.891 Other specified diseases and conditions complicating pregnancy (principal); R30.0 Dysuria; Z3A.01 Less than 8 weeks gestation of pregnancy
CPT/HCPCS: 36415; 76801; 81001; 81025; 84702; 87086; 99284

== ENCOUNTER → 2023-10-21 | Outpatient (CLI) | payer BC, OTHER | END | disposition home or self-care (01) | LOC: LABWHC1 12:46 | PROVIDERS: ATTEND Emergency Medicine | DX: O20.0 Threatened abortion (principal) | CPT/HCPCS: 36415; 84702 ==

== ENCOUNTER → 2023-11-16 | Outpatient (CLI) | payer BC, OTHER ==
[2023-11-16 15:46] LABS: Basophils # (A) 0.06 X 10*3/uL (0.00-0.10); Basophils % (A) 0.7 %; Eosinophils # (A) 0.14 X 10*3/uL (0.04-0.35); Eosinophils % (A) 1.7 %; HCT 39.4 % (37.2-46.3); HGB 12.5 g/dL (12.0-15.0); Lymphocytes # (A) 2.41 X 10*3/uL (0.90-5.00); Lymphocytes % (A) 29.5 %; MCH 28.2 pg (27.0-32.0); MCHC 31.7 g/dL (32.0-37.0); MCV 88.7 FL (80.0-97.0); Mean Platelet Volume 9.7 FL (9.5-12.2); Monocytes # (A) 0.49 X 10*3/uL (0.20-1.00); NRBC Per 100 WBC 0 X 10*3/uL (0.00-0.01); Neutrophils # (A) 5.06 X 10*3/uL (1.80-7.70); Neutrophils % (A) 61.9 %; Platelet Count 332 X 10*3/uL (140-440); RBC 4.44 X 10*6/uL (4.10-5.20); RDW 13.9 % (11.5-14.5); WBC 8.18 X 10*3/uL (4.50-10.00)
== END | disposition home or self-care (01) ==
LOC: LABPAT 09:00
PROVIDERS: ATTEND Obstetrics & Gynecology
DX: Z01.812 Encounter for preprocedural laboratory examination (principal); O02.1 Missed abortion; Z3A.00 Weeks of gestation of pregnancy not specified
CPT/HCPCS: 85025; 86850; 86900; 86901

== ENCOUNTER 2023-11-17 06:18 | Day surgery (SDC) | payer BC, OTHER ==
[2023-11-17] MEDS: LACTATED RINGERS 1,000 ML IV ONE ×2 (06:52→07:32)
[2023-11-17] MEDS ORDERED: ONDANSETRON 4 MG/2 ML VIAL ONE (06:53)
[2023-11-17] MEDS: DOXYCYCLINE 100 MG CAP PO PRN (06:56)
[2023-11-17] MEDS ORDERED: LACTATED RINGERS 1,000 ML IV SCH (06:56)
[2023-11-17 06:57] VITALS: TEMP 97.3
[2023-11-17] MEDS: ONDANSETRON 4 MG/2 ML VIAL IVP ONE (06:59)
[2023-11-17] MEDS: DEXAMETHASONE SOD PHOSPHATE 4 MG/ML 1 ML VIAL IV ONE (06:59)
[2023-11-17] MEDS ORDERED: HYDROmorphone 0.5 MG/0.5 ML SYRINGE IVP PRN (07:00)
[2023-11-17] MEDS ORDERED: PROPOFOL 10 MG/ML 20 ML VIAL IV ONE (07:27)
[2023-11-17] MEDS ORDERED: fentaNYL (PF) 50 MCG/ML 2 ML AMP ONE (07:27)
[2023-11-17] MEDS ORDERED: MIDAZOLAM 2 MG/2 ML VIAL ONE (07:27)
[2023-11-17] MEDS ORDERED: LIDOCAINE 1% INJ 10MG/ML (20 ML MDV) ONE (07:27)
--- NOTE | 2023-11-17 08:14 | P.OP ---
Date of Procedure: 11/17/23 Preoperative Diagnosis: 1. Missed Postoperative Diagnosis: Same Procedure(s) Performed: Suction D&C Implants: None Anesthesia: SAMIR Surgeon: Ayesha Pena Estimated Blood Loss (ml): 75 IV fluids (ml): 300 Urine output (ml): 25 Pathology: other (products of conception) Condition: stable Disposition: same day Indications for Procedure: Ms. Alexander is a 28 year old with a missed measuring approximately 6 weeks by crown rump length. Risks, benefits, and alternatives to suction D&C were discussed with the patient including risks of bleeding, infection, uterine perforation, and damage to surrounding structures. The patient understands these risks and desires to proceed. All questions answered. Operative Findings: The patient is Rh positive. Exam under anesthesia reveals anteverted uterus approximately 12 weeks in size. Adnexal exam is negative bilaterally. The uterus sounds to 11 cm. Moderate amount of products are retrieved with the suction. Description of Procedure: The patient was taken to the operating room where a general anesthetic was administered. She was then positioned in the dorsal lithotomy position and prepped and draped in the normal sterile fashion. Once the anesthetic was found to be adequate, a bimanual exam was performed under anesthetic. Next, a weighted speculum was placed in the vagina. The anterior lip of cervix was grasped with the tenaculum and wil dilators were used to dilate the cervix to accomodate the 8mm suction curette. An 8mm suction curette was connected to the suction and was placed in the cervix and a suction curettage was performed. Two passes were made with the suction curettage. Next, a sharp curettage was performed obtaining a small amount of tissue and this was followed by third suction curettage. After the procedure, the tenaculum was removed. The cervix was hemostatic. The weighted speculum was removed. After the procedure, a second bimanual exam was performed and the patient's uterus had significantly decreased in size.The patient was taken from the operating room in stable condition after she was cleaned. She will be discharged home today and will follow up in the office in 2 weeks.
[2023-11-17 09:13] VITALS: RESP 17
[2023-11-17 09:57] VITALS: BP 121/79; PULSE 84
== END 2023-11-17 09:48 | disposition home or self-care (01) ==
LOC: OR 06:18
PROVIDERS: ATTEND Obstetrics & Gynecology
DX: O02.1 Missed abortion (principal); F17.200 Nicotine dependence, unspecified, uncomplicated; Z87.442 Personal history of urinary calculi
CPT/HCPCS: 88305; 59820; J2250; J1100; J2405; J2001; J3010; J2704

== ENCOUNTER 2024-02-15 16:46 | Emergency (ER) | payer BC, OTHER ==
[2024-02-15 17:36] LABS: Basophils # (A) 0.1 k/uL (0-0.2); Basophils % (A) 0 %; Eosinophils # (A) 0.2 k/uL (0-0.7); Eosinophils % (A) 1 %; HCT 44.3 % (34.0-46.0); HGB 14.2 gm/dL (11.4-16.0); Lymphocytes # (A) 3.3 k/uL (1.0-4.8); Lymphocytes % (A) 22 %; MCH 27.9 pg (25.0-35.0); MCV 87.2 fL (80.0-100.0); Mean Platelet Volume 7.8; Monocytes # (A) 0.7 k/uL (0-1.0); Monocytes % (A) 5 %; Neutrophils # (A) 10.4 k/uL (1.3-7.7); Neutrophils % (A) 70 %; Platelet Count 353 k/uL (150-450); RBC 5.08 m/uL (3.80-5.40); RDW 13.5 % (11.5-15.5); WBC 14.7 k/uL (3.8-10.6)
[2024-02-15 17:48] LABS: INR 0.9 (<1.2); Partial Thromboplastin Time 26.8 sec (22.0-30.0); Prothrombin Time 10.3 sec (10.0-12.5)
--- NOTE | 2024-02-15 17:56 | XR ---
EXAMINATION TYPE: XR chest 2V DATE OF EXAM: 02/15/2024 5:21 PM CLINICAL INDICATION:Female, 28 years old with history of Chest Pain; COMPARISON: None TECHNIQUE: XR chest 2V Frontal view of the chest. FINDINGS: Lungs/Pleura: There is no evidence of pleural effusion, focal consolidation, or pneumothorax. Pulmonary vascularity: Unremarkable. Heart/mediastinum: Cardiomediastinal silhouette is unremarkable. Musculoskeletal: No acute osseous pathology. IMPRESSION: No acute cardiopulmonary disease/process.
[2024-02-15 18:03] LABS: African American GFR (CKD) >90 (>60 ml/min/1.73 sqM); Anion Gap 11 mmol/L; Blood Urea Nitrogen 12 mg/dL (7-17); Calcium 9.6 mg/dL (8.4-10.2); Carbon Dioxide 21 mmol/L (22-30); Chloride 105 mmol/L (98-107); Non-African American GFR(CKD) >90 (>60 ml/min/1.73 sqM); Sodium 137 mmol/L (137-145)
[2024-02-15 18:17] LABS: Albumin 5.1 g/dL (3.5-5.0); Glucose 88 mg/dL (74-99); Potassium 5.3 mmol/L (3.5-5.1); Total Protein 8.2 g/dL (6.3-8.2)
[2024-02-15 18:18] LABS: ALT 23 U/L (4-34); AST 49 U/L (14-36); Alkaline Phosphatase 72 U/L (38-126)
--- NOTE | 2024-02-15 18:23 | ED ---
Chest Pain HPI - General Source: patient, RN notes reviewed, old records reviewed Mode of arrival: ambulatory Limitations: no limitations <Del Reina - Last Filed: 02/15/24 18:21> <Pallavi Meyer - Last Filed: 02/15/24 21:05> - General Chief Complaint: Chest Pain Stated Complaint: hypertension Time Seen by Provider: 02/15/24 18:02 - History of Present Illness Initial Comments: QN 28 female to the ER for evaluation of hypertension chest pain right chest pain down the right arm chest pain on the left arm. Patient did take her blood pressure at home she has a blood pressure cuff secondary to having gestational hypertension she has been on medication in the past no longer currently taking his medications. Patient does not admit any significant current anxiety. Patient has no medical history takes no medications no history of hypertension. Maximum blood pressure at home was 160 something over 114. (Del Reina) - Related Data Previous Rx's Medication Instructions Recorded amLODIPine [Norvasc] 2.5 mg PO DAILY #30 tablet 02/15/24 Allergies Allergy/AdvReac Type Severity Reaction Status Date / Time No Known Allergies Allergy Verified 02/15/24 19:02 Review of Systems ROS Other: All systems not noted in ROS Statement are negative. <Del Reina - Last Filed: 02/15/24 18:21> ROS Other: All systems not noted in ROS Statement are negative. <aPllavi Meyer - Last Filed: 02/15/24 21:05> ROS Statement: Those systems with pertinent positive or pertinent negative responses have been documented in the HPI. Past Medical History Past Medical History: Hypertension Additional Past Medical History / Comment(s): RENAL CALCULUS, Htn after childbirth for couple months,mononucleosis 2011 History of Any Multi-Drug Resistant Organisms: None Reported Past Surgical History: No Surgical Hx Reported Additional Past Surgical History / Comment(s): lithotripsy/ with ureteral stent Past Anesthesia/Blood Transfusion Reactions: No Reported Reaction Past Psychological History: No Psychological Hx Reported Smoking Status: Never smoker Past Alcohol Use History: None Reported Past Drug Use History: None Reported - Past Family History Mother Family Medical History: No Reported History Father Family Medical History: Hypertension, Thyroid Disorder <Del Reina - Last Filed: 02/15/24 18:21> General Exam Limitations: no limitations General appearance: alert, in no apparent distress Head exam: Present: atraumatic, normocephalic, normal inspection Eye exam: Present: normal appearance, PERRL, EOMI. Absent: scleral icterus, conjunctival injection, periorbital swelling ENT exam: Present: normal exam, mucous membranes moist Neck exam: Present: normal inspection. Absent: tenderness, meningismus, lymphadenopathy Respiratory exam: Present: normal lung sounds bilaterally. Absent: respiratory distress, wheezes, rales, rhonchi, stridor Cardiovascular Exam: Present: regular rate, normal rhythm, normal heart sounds. Absent: systolic murmur, diastolic murmur, rubs, gallop, clicks GI/Abdominal exam: Present: soft, normal bowel sounds. Absent: distended, tenderness, guarding, rebound, rigid Extremities exam: Present: normal inspection, full ROM, normal capillary refill. Absent: tenderness, pedal edema, joint swelling, calf tenderness Back exam: Present: normal inspection Neurological exam: Present: alert, oriented X3, CN II-XII intact Psychiatric exam: Present: normal affect, normal mood Skin exam: Present: warm, dry, intact, normal color. Absent: rash <Del Reina - Last Filed: 02/15/24 18:21> Course <Del Reina - Last Filed: 02/15/24 18:21> Vital Signs 02/15/24 02/15/24 02/15/24 16:52 18:45 18:55 Temperature 98.2 F Pulse Rate 117 H 105 H Pulse Rate [ 98 Eyeglass Frames Inspector ] Respiratory 20 17 Rate Blood Pressure 154/102 148/105 O2 Sat by Pulse 99 98 Oximetry 02/15/24 02/15/24 19:03 19:29 Temperature 98.3 F Pulse Rate 86 92 Pulse Rate [ Eyeglass Frames Inspector ] Respiratory 16 Rate Blood Pressure 139/83 143/100 O2 Sat by Pulse 99 Oximetry - Reevaluation(s) Reevaluation #1: 02/15/24 18:23 QN completed [address] myself Dr. Renia (Del Reina) Chest Pain MDM <Pallavi Meyer - Last Filed: 02/15/24 21:05> - MDM Was pt. sent in by a medical professional or institution (Dr., PA, CDL DRIVER, urgent care, hospital, or care home...) When possible be specific @ -[No] Did you speak to anyone other than the patient for history (EMS, parent, family, police, friend...)? What history was obtained from this source @ -[No] Did you review nursing and triage notes (agree or disagree)? Why? @ -[I reviewed and agree with nursing and triage notes] Were old charts reviewed (outside hosp., previous admission, EMS record, old EKG, old radiological studies, urgent care reports/EKG's, care home records)? Report findings @ -[No old charts were reviewed] Differential Diagnosis (chest pain, altered mental status, abdominal pain women, abdominal pain men, vaginal bleeding, weakness, fever, dyspnea, syncope, headache, dizziness, GI bleed, back pain, seizure, CVA, palpatations, mental h ealth, musculoskeletal)? @ -[not applicable] EKG interpreted by me (3pts min.). @ -S and demonstrates sinus rhythm with a rate of 90. Parable 136. QRS 86. QTc of 382. Inverted T wave lead III. No acute ST segment elevations X-rays interpreted by me (1pt min.). @ -[None done] CT interpreted by me (1pt min.). @ -[None done] U/S interpreted by me (1pt. min.). @ -[None done] What testing was considered but not performed or refused? (CT, X-rays, U/S, labs)? Why? @ -[None] What meds were considered but not given or refused? Why? @ -[None] Did you discuss the management of the patient with other professionals (professionals i.e. DEDRICK Brunner, CDL DRIVER, lab, RT, psych nurse, social media marketer, offset plate preparation supervisor, teacher, medical officer, caseworker intake)? Give summary @ -[No] Was smoking cessation discussed for >3mins.? @ -[No] Was critical care preformed (if so, how long)? @ -[No] Were there social determinants of health that impacted care today? How? (Homelessness, low income, unemployed, alcoholism, drug addiction, transportation, low edu. Level, literacy, decrease access to med. care, [facility], rehab)? @ -[No] Was there de-escalation of care discussed even if they declined (Discuss DNR or withdrawal of care, Hospice)? DNR status @ -[No] What co-morbidities impacted this encounter? (DM, HTN, Smoking, COPD, CAD, Cancer, CVA, ARF, Chemo, Hep., AIDS, mental health diagnosis, sleep apnea, morbid obesity)? @ -[None] Was patient admitted / discharged? Hospital course, mention meds given and route, prescriptions, significant lab abnormalities, going to OR and other pertinent info. @ -[hospital course] Undiagnosed new problem with uncertain prognosis? @ -[No] Drug Therapy requiring intensive monitoring for toxicity (Heparin, Nitro, Insulin, Cardizem)? @ -[No] Were any procedures done? @ -[No] Diagnosis/symptom? @ -[default] Acute, or Chronic, or Acute on Chronic? @ -[default] Uncomplicated (without systemic symptoms) or Complicated (systemic symptoms)? @ -[default] Side effects of treatment? @ -[No] Exacerbation, Progression, or Severe Exacerbation? @ -[No] Poses a threat to life or bodily function? How? (Chest pain, [place], [place], pneumonia, PE, COPD, DKA, ARF, appy, cholecystitis, CVA, Diverticulitis, Homicidal, Suicidal, threat to staff... and all critical care pts) @ -[No] (Pallavi Meyer) Disposition <Del Reina - Last Filed: 02/15/24 18:21> Is patient prescribed a controlled substance at d/c from ED?: No Time of Disposition: 21:05 <Pallavi Meyer - Last Filed: 02/15/24 21:05> Clinical Impression: Chest pain, Hypertension Disposition: HOME SELF-CARE Condition: Stable Instructions (If sedation given, give patient instructions): Chest Pain (ED) Additional Instructions: Check your blood pressures twice daily tomorrow and record them. If your blood pressures continue to be greater than 140/90, initiate the blood pressure medication. I recommend that your primary care doctor order a stress test, echo and Holter monitoring. Please return should you have any new or worsening symptoms Prescriptions: amLODIPine [Norvasc] 2.5 mg PO DAILY #30 tablet Referrals: Jax Roman Jr, DO [Primary Care Provider] - 1-2 days
[2024-02-15 19:04] VITALS: RESP 16
[2024-02-15 19:32] VITALS: TEMP 98.3
[2024-02-15] MEDS: KETOROLAC 15 MG/ML 1 ML VIAL IVP STA (19:32)
[2024-02-15 20:50] LABS: Appearance,Urine Clear (Clear); Bilirubin,Urine Negative (Negative); Blood,Urine Negative (Negative); Color,Urine Colorless; Glucose,Urine (UA) Negative (Negative); Ketones,Urine Negative (Negative); Leukocyte Esterase,Urine Negative (Negative); Nitrite,Urine Negative (Negative); PH, Urine 6.5 (5.0-8.0); Protein,Urine Negative (Negative); Specific Gravity,Urine 1.008 (1.001-1.035); Urobilinogen,Urine <2.0 mg/dL (<2.0)
[2024-02-15 21:44] VITALS: BP 121/82; PULSE 80
== END 2024-02-15 21:57 | disposition home or self-care (01) ==
LOC: EC 16:46
DX: R07.89 Other chest pain (principal); I10 Essential (primary) hypertension
CPT/HCPCS: 36415; 93005; 85379; 80053; 84443; 83735; 84484; 85025; 85610; 85730; 81003; 81025; 71046; 99285; 96374; J1885

== ENCOUNTER 2024-02-27 16:52 | Emergency (ER) | payer BC, OTHER ==
[2024-02-27 17:30] LABS: Basophils # (A) 0.1 k/uL (0-0.2); Basophils % (A) 1 %; Eosinophils # (A) 0.2 k/uL (0-0.7); Eosinophils % (A) 1 %; HGB 13.3 gm/dL (11.4-16.0); Lymphocytes # (A) 3.2 k/uL (1.0-4.8); Lymphocytes % (A) 23 %; MCHC 33.3 g/dL (31.0-37.0); Mean Platelet Volume 7.3; Monocytes # (A) 0.7 k/uL (0-1.0); Monocytes % (A) 5 %; Neutrophils # (A) 9.5 k/uL (1.3-7.7); Neutrophils % (A) 69 %; Platelet Count 324 k/uL (150-450); RBC 4.59 m/uL (3.80-5.40); RDW 13.5 % (11.5-15.5); WBC 13.8 k/uL (3.8-10.6)
[2024-02-27 17:40] LABS: Appearance,Urine Cloudy (Clear); Bilirubin,Urine Negative (Negative); Blood,Urine Small (Negative); Color,Urine Colorless; Glucose,Urine (UA) Negative (Negative); Ketones,Urine Negative (Negative); Leukocyte Esterase,Urine Moderate (Negative); Mucus,Urine Rare /hpf; Nitrite,Urine Negative (Negative); Protein,Urine Negative (Negative); RBC,Urine 3 /hpf (0-5); Specific Gravity,Urine 1.015 (1.001-1.035); Squamous Epithelial Cell,Urine 25 /hpf (0-4); Urobilinogen,Urine <2.0 mg/dL (<2.0); WBC,Urine 25 /hpf (0-5)
[2024-02-27 17:46] LABS: ALT 17 U/L (4-34); African American GFR (CKD) >90 (>60 ml/min/1.73 sqM); Albumin 4.7 g/dL (3.5-5.0); Anion Gap 10 mmol/L; Blood Urea Nitrogen 14 mg/dL (7-17); Calcium 9.6 mg/dL (8.4-10.2); Carbon Dioxide 22 mmol/L (22-30); Chloride 106 mmol/L (98-107); Glucose 96 mg/dL (74-99); Non-African American GFR(CKD) >90 (>60 ml/min/1.73 sqM); Sodium 138 mmol/L (137-145); Total Bilirubin 0.5 mg/dL (0.2-1.3); Total Protein 7.2 g/dL (6.3-8.2)
[2024-02-27 17:57] LABS: AST 28 U/L (14-36); Alkaline Phosphatase 70 U/L (38-126); Potassium 4.3 mmol/L (3.5-5.1)
--- NOTE | 2024-02-27 20:15 | ED ---
Abdominal Pain HPI - General Chief Complaint: Abdominal Pain Stated Complaint: abd pain/back pain Time Seen by Provider: 02/27/24 17:10 Source: patient, RN notes reviewed Mode of arrival: ambulatory Limitations: no limitations - History of Present Illness Initial Comments: Is a 28-year-old female with no significant past medical history presenting to department chief complaint of headache flank pain and diffuse abdominal pain that has been present for approximately 1 week. Denies symptoms of dysuria, hematuria, increase in urinary frequency or urgency. Patient states that she took an at home test yesterday morning and there was a faint positive line and she is concerned that she may be experiencing symptoms of ectopic . Patient denies vaginal bleeding or vaginal discharge. She denies previous surgical abdominal history. She denies fevers, chills, nausea, vomiting. Last bowel movement was this morning. - Related Data Previous Rx's Medication Instructions Recorded amLODIPine [Norvasc] 2.5 mg PO DAILY #30 tablet 02/15/24 Ciprofloxacin HCl [Cipro] 500 mg PO Q12HR #20 tablet 02/27/24 Allergies Allergy/AdvReac Type Severity Reaction Status Date / Time No Known Allergies Allergy Verified 02/27/24 17:09 Review of Systems ROS Statement: Those systems with pertinent positive or pertinent negative responses have been documented in the HPI. ROS Other: All systems not noted in ROS Statement are negative. Past Medical History Past Medical History: Hypertension Additional Past Medical History / Comment(s): RENAL CALCULUS, Htn after childbirth for couple months,mononucleosis 2011 History of Any Multi-Drug Resistant Organisms: None Reported Past Surgical History: No Surgical Hx Reported Additional Past Surgical History / Comment(s): lithotripsy/ with ureteral stent Past Anesthesia/Blood Transfusion Reactions: No Reported Reaction Past Psychological History: No Psychological Hx Reported Smoking Status: Never smoker Past Alcohol Use History: None Reported Past Drug Use History: None Reported - Past Family History Mother Family Medical History: No Reported History Father Family Medical History: Hypertension, Thyroid Disorder General Exam Limitations: no limitations General appearance: alert, in no apparent distress Head exam: Present: atraumatic, normocephalic, normal inspection Eye exam: Present: normal appearance, PERRL, EOMI. Absent: scleral icterus, conjunctival injection, periorbital swelling ENT exam: Present: normal exam, mucous membranes moist Neck exam: Present: normal inspection. Absent: tenderness, meningismus, lymphadenopathy Respiratory exam: Present: normal lung sounds bilaterally. Absent: respiratory distress, wheezes, rales, rhonchi, stridor Cardiovascular Exam: Present: regular rate, normal rhythm, normal heart sounds. Absent: systolic murmur, diastolic murmur, rubs, gallop, clicks GI/Abdominal exam: Present: soft, normal bowel sounds. Absent: distended, tenderness, guarding, rebound, rigid Extremities exam: Present: normal inspection, full ROM, normal capillary refill. Absent: tenderness, pedal edema, joint swelling, calf tenderness Back exam: Present: normal inspection, full ROM, CVA tenderness (R) Neurological exam: Present: alert, oriented X3, CN II-XII intact Psychiatric exam: Present: normal affect, normal mood Skin exam: Present: warm, dry, intact, normal color. Absent: rash Course Vital Signs 02/27/24 02/27/24 17:05 20:42 Temperature 98.1 F 98.7 F Pulse Rate 82 78 Respiratory 18 16 Rate Blood Pressure 154/92 137/92 O2 Sat by Pulse 100 99 Oximetry Medical Decision Making - Medical Decision Making Was pt. sent in by a medical professional or institution (, PA, ADMINISTRATOR PESTICIDE, urgent care, hospital, or fci...) When possible be specific @ -No Did you speak to anyone other than the patient for history (EMS, parent, family, police, friend...)? What history was obtained from this source @ -No Did you review nursing and triage notes (agree or disagree)? Why? @ -I reviewed and agree with nursing and triage notes Were old charts reviewed (outside hosp., previous admission, EMS record, old EKG, old radiological studies, urgent care reports/EKG's, fci records)? Report findings @ -No old charts were reviewed Differential Diagnosis (chest pain, altered mental status, abdominal pain women, abdominal pain men, vaginal bleeding, weakness, fever, dyspnea, syncope, headache, dizziness, GI bleed, back pain, seizure, CVA, palpatations, mental health, musculoskeletal)? @ -Differential Abdominal Pain Women: Appendicitis, Cholecystitis, diverticulosis, ischemic bowel, pancreatitis, hepatitis, UTI, gastroenteritis, AAA, incarcerated hernia, bowel obstruction, constipation, inflammatory bowel, hepatitis, peptic ulcer disease, splenic infarction, perforated viscus, vulvitis, ovarian torsion, PID, kidney stone, placenta abruption, this is not meant to be an all-inclusive list EKG interpreted by me (3pts min.). @ -None X-rays interpreted by me (1pt min.). @ -None done CT interpreted by me (1pt min.). @ -None done U/S interpreted by me (1pt. min.). @ -None done What testing was considered but not performed or refused? (CT, X-rays, U/S, labs)? Why? @ -None What meds were considered but not given or refused? Why? @ -None Did you discuss the management of the patient with other professionals (professionals i.e. , PA, ADMINISTRATOR PESTICIDE, lab, RT, psych nurse, rn social services, residential coordinator, teacher, commercial loan collection officer, pillowcase folder)? Give summary @ -No Was smoking cessation discussed for >3mins.? @ -No Was critical care preformed (if so, how long)? @ -No Were there social determinants of health that impacted care today? How? (Homelessness, low income, unemployed, alcoholism, drug addiction, transportation, low edu. Level, literacy, decrease access to med. care, detention, rehab)? @ -No Was there de-escalation of care discussed even if they declined (Discuss DNR or withdrawal of care, Hospice)? DNR status @ -No What co-morbidities impacted this encounter? (DM, HTN, Smoking, COPD, CAD, Cancer, CVA, ARF, Chemo, Hep., AIDS, mental health diagnosis, sleep apnea, morb id obesity)? @ -None Was patient admitted / discharged? Hospital course, mention meds given and rout e, prescriptions, significant lab abnormalities, going to OR and other pertinent info. @ -Discharged. 28-year-old female with flank pain and suprapubic abdominal pain. Evaluation of the patient her vitals are within normal limits and she is resting comfortably on the examination bed. There are no signs of abdominal tenderness, patient does have bilateral flank tenderness to palpation. Symptomatically treated with Toradol and IV fluids pending results of labs. Revealing mild leukocytosis of 13.8 and neutrophilia of 9.5. CMP grossly unremarkable, urinalysis remarkable for infection including moderate leukocyte esterase and white blood cells. hCG is negative. At this time patient will be treated for tract infection and pyelonephritis due to flank pain. Patient is provided with dose of Rocephin the emergency department resent a prescription for antibiotics to complete outpatient. All questions answered at bedside and strict return parameters rudolph with the patient she is verbalized understanding. Recommend the patient follows up with her primary care provider this week for further evaluation. Discussed with Dr. Lam Undiagnosed new problem with uncertain prognosis? @ -No Drug Therapy requiring intensive monitoring for toxicity (Heparin, Nitro, Ins ulin, Cardizem)? @ -No Were any procedures done? @ -No Diagnosis/symptom? @ -pyelonpehritis, urinary tract infection Acute, or Chronic, or Acute on Chronic? @ -Acute Uncomplicated (without systemic symptoms) or Complicated (systemic symptoms)? @ -uncomplicated Side effects of treatment? @ -No Exacerbation, Progression, or Severe Exacerbation? @ -No Poses a threat to life or bodily function? How? (Chest pain, [place], [place], pneumonia, PE, COPD, DKA, ARF, appy, cholecystitis, CVA, Diverticulitis, Homicidal, Suicidal, threat to staff... and all critical care pts) @ -No - Lab Data Result diagrams: 02/27/24 17:16 02/27/24 17:16 Lab Results 02/27/24 02/27/24 02/27/24 Range/Units 17:16 17:16 17:16 WBC 13.8 H (3.8-10.6) k/uL RBC 4.59 (3.80-5.40) m/uL Hgb 13.3 (11.4-16.0) gm/dL Hct 40.0 (34.0-46.0) % MCV 87.0 (80.0-100.0) fL MCH 29.0 (25.0-35.0) pg MCHC 33.3 (31.0-37.0) g/dL RDW 13.5 (11.5-15.5) % Plt Count 324 (150-450) k/uL MPV 7.3 Neutrophils % 69 % Lymphocytes % 23 % Monocytes % 5 % Eosinophils % 1 % Basophils % 1 % Neutrophils # 9.5 H (1.3-7.7) k/uL Lymphocytes # 3.2 (1.0-4.8) k/uL Monocytes # 0.7 (0-1.0) k/uL Eosinophils # 0.2 (0-0.7) k/uL Basophils # 0.1 (0-0.2) k/uL Sodium (137-145) mmol/L Potassium (3.5-5.1) mmol/L Chloride (98-107) mmol/L Carbon Dioxide (22-30) mmol/L Anion Gap mmol/L BUN (7-17) mg/dL Creatinine (0.52-1.04) mg/dL Est GFR (CKD-EPI)AfAm (>60 ml/min/1.73 sqM) Est GFR (CKD-EPI)NonAf (>60 ml/min/1.73 sqM) Glucose (74-99) mg/dL Plasma Lactic Acid Blaze (0.7-2.0) mmol/L Calcium (8.4-10.2) mg/dL Total Bilirubin (0.2-1.3) mg/dL AST (14-36) U/L ALT (4-34) U/L Alkaline Phosphatase (38-126) U/L Total Protein (6.3-8.2) g/dL Albumin (3.5-5.0) g/dL Urine Color Colorless Urine Appearance Cloudy H (Clear) Urine pH 5.0 (5.0-8.0) Ur Specific [place] 1.015 (1.001-1.035) Urine Protein Negative (Negative) Urine Glucose (UA) Negative (Negative) Urine Ketones Negative (Negative) Urine Blood Small H (Negative) Urine Nitrite Negative (Negative) Urine Bilirubin Negative (Negative) Urine Urobilinogen <2.0 (<2.0) mg/dL Ur Leukocyte Esterase Moderate H (Negative) Urine RBC 3 (0-5) /hpf Urine WBC 25 H (0-5) /hpf Ur Squamous Epith Cells 25 H (0-4) /hpf Urine Mucus Rare H (None) /hpf Urine HCG, Qual Not Detected (Not Detectd) 02/27/24 02/27/24 Range/Units 17:16 17:16 WBC (3.8-10.6) k/uL RBC (3.80-5.40) m/uL Hgb (11.4-16.0) gm/dL Hct (34.0-46.0) % MCV (80.0-100.0) fL MCH (25.0-35.0) pg MCHC (31.0-37.0) g/dL RDW (11.5-15.5) % Plt Count (150-450) k/uL MPV Neutrophils % % Lymphocytes % % Monocytes % % Eosinophils % % Basophils % % Neutrophils # (1.3-7.7) k/uL Lymphocytes # (1.0-4.8) k/uL Monocytes # (0-1.0) k/uL Eosinophils # (0-0.7) k/uL Basophils # (0-0.2) k/uL Sodium 138 (137-145) mmol/L Potassium 4.3 (3.5-5.1) mmol/L Chloride 106 (98-107) mmol/L Carbon Dioxide 22 (22-30) mmol/L Anion Gap 10 mmol/L BUN 14 (7-17) mg/dL Creatinine 0.71 (0.52-1.04) mg/dL Est GFR (CKD-EPI)AfAm >90 (>60 ml/min/1.73 sqM) Est GFR (CKD-EPI)NonAf >90 (>60 ml/min/1.73 sqM) Glucose 96 (74-99) mg/dL Plasma Lactic Acid Blaze 0.7 (0.7-2.0) mmol/L Calcium 9.6 (8.4-10.2) mg/dL Total Bilirubin 0.5 (0.2-1.3) mg/dL AST 28 (14-36) U/L ALT 17 (4-34) U/L Alkaline Phosphatase 70 (38-126) U/L Total Protein 7.2 (6.3-8.2) g/dL Albumin 4.7 (3.5-5.0) g/dL Urine Color Urine Appearance (Clear) Urine pH (5.0-8.0) Ur Specific [place] (1.001-1.035) Urine Protein (Negative) Urine Glucose (UA) (Negative) Urine Ketones (Negative) Urine Blood (Negative) Urine Nitrite (Negative) Urine Bilirubin (Negative) Urine Urobilinogen (<2.0) mg/dL Ur Leukocyte Esterase (Negative) Urine RBC (0-5) /hpf Urine WBC (0-5) /hpf Ur Squamous Epith Cells (0-4) /hpf Urine Mucus (None) /hpf Urine HCG, Qual (Not Detectd) Disposition Clinical Impression: Flank pain, UTI (urinary tract infection) Disposition: HOME SELF-CARE Condition: Good Instructions (If sedation given, give patient instructions): Urinary Tract Infection in Women (ED) Additional Instructions: Return to the emergency department for any new or worsening symptoms. Complete full course of antibiotics as prescribed. Prescriptions: Ciprofloxacin HCl [Cipro] 500 mg PO Q12HR #20 tablet Is patient prescribed a controlled substance at d/c from ED?: No Referrals: Jax Roman Jr, [Primary Care Provider] - 1-2 days Time of Disposition: 20:48
[2024-02-27] MEDS: SODIUM CHLORIDE 0.9% 500 ML 500 ML IV STA (20:32)
[2024-02-27] MEDS: KETOROLAC 15 MG/ML 1 ML VIAL IVP STA (20:33)
[2024-02-27 20:48] VITALS: BP 137/92; PULSE 78; RESP 16; TEMP 98.7
[2024-02-27] MEDS: cefTRIAXone IN SWFI 1,000 MG/10 ML SYRINGE IVP STA (20:51)
== END 2024-02-27 21:00 | disposition home or self-care (01) ==
LOC: EC 16:52
DX: N39.0 Urinary tract infection, site not specified (principal); N12 Tubulo-interstitial nephritis, not specified as acute or chronic; D72.829 Elevated white blood cell count, unspecified
CPT/HCPCS: 36415; 80053; 83605; 85025; 81001; 81025; 87086; 99284; 96374; 96375; J0696; J1885

== ENCOUNTER → 2024-05-26 | Outpatient (CLI) | payer OTHER | END | disposition home or self-care (01) | LOC: LABWHC1 10:52 | PROVIDERS: ATTEND Obstetrics & Gynecology | CPT/HCPCS: 36415; 84702 ==

== ENCOUNTER → 2024-08-24 | Outpatient (CLI) | payer OTHER ==
[2024-08-24 20:59] LABS: T4, Free (Free Thyroxine) 0.89 ng/dL (0.80-1.80)
== END | disposition home or self-care (01) ==
LOC: LABWHC1 12:13
PROVIDERS: ATTEND Family Medicine
DX: E03.9 Hypothyroidism, unspecified (principal)
CPT/HCPCS: 36415; 84439; 84443